=== PATIENT | female | born 1930 | race Caucasian/White ===

== ENCOUNTER 2019-06-04 00:40 | Inpatient (IN) | payer OTHER ==
--- NOTE | 2019-06-04 01:57 | PDOC ---
Attending Attestation - Resident Resident Name: Geetha Panchal - ED Attending Attestation I have performed the following: I have examined & evaluated the patient, The case was reviewed & discussed with the resident, I agree w/resident's findings & plan - HPI HPI: 06/04/19 02:25 Pt comes with hematuria; from rehab NH. - Physicial Exam PE: 06/04/19 02:26 Agree with resident exam. - Medical Decision Making 06/04/19 02:26 Pt likely has a UTI and we will check UA and rx with abx. 06/04/19 03:40 Pt has GI bleed; stool occult positive with anemia 7.4 Hb; she will be admitted for colonoscopy. GI consult placed in orders
--- NOTE | 2019-06-04 02:49 | PDOC ---
History of Present Illness - General Chief Complaint: Hematuria Stated Complaint: PAIN Time Seen by Provider: 06/04/19 01:16 - History of Present Illness Initial Comments: 06/04/19 03:53 89 y/o F hx of recent AAA repair at [facility], [place], HTN, HLD, GERD, hemorrohids, macular degeneration presents from [facility] for evaluation f hematuria and bloody stool . Hx obtained from diabetes manager at bedside. She has had hematuria for the last 3 days and increasing weakness, HEr AAA surgery at [facility], [place] was 4 weeks ago. She has had increasing weakness. Facility was contacted for more information, however unable to get anyone on the phone after a few tries. Pt is alert and oriented to person and place, she denies any fevers, chills, abdominal pain, nausea or vomiting. Past History - Past Medical History Allergies/Adverse Reactions: Allergies Allergy/AdvReac Type Severity Reaction Status Date / Time No Known Allergies Allergy Verified 06/04/19 00:53 Home Medications: Ambulatory Orders Acetaminophen [Tylenol -] 1,000 mg PO BID 06/04/19 Aspirin 81 mg PO DAILY 06/04/19 Calcium Carbonate/Vitamin D3 [Calcium 500 mg Chewable Tablet] 1 each PO DAILY Cholecalciferol (Vitamin D3) [Vitamin D3 -] 1,000 unit PO DAILY 06/04/19 Cholecalciferol (Vitamin D3) [Vitamin D3] 1,000 unit PO DAILY 06/04/19 Docusate Sodium [Colace] 200 mg PO BID 06/04/19 Ferrous Sulfate 325 mg PO DAILY 06/04/19 Irbesartan [Avapro] 150 mg PO HS 06/04/19 Mag Hydrox/Aluminum Hyd/Simeth [Donna-Lanta Liquid] 15 ml PO BID 06/04/19 Metoprolol Succinate 50 mg PO DAILY 06/04/19 Omeprazole Magnesium [Prilosec Otc] 20 mg PO DAILY 06/04/19 Polyethylene Glycol [Polyox Wsr-301] 1 gm MC DAILY 06/04/19 Potassium Chloride 2,500 gm MC TID 06/04/19 Psyllium Seed [Hydrocil Instant] 1 each PO DAILY 06/04/19 Vit A/Vit C/Vit E/Zinc/Copper [Preservision Areds Softgel] 1 cap PO BID levoFLOXacin [Levaquin -] 500 mg PO DAILY #7 tablet 06/04/19 COPD: No GI Disorders: Yes (hemorhoids, reflux) HTN: Yes Hypercholesterolemia: Yes - Psycho Social/Smoking Cessation Hx Smoking History: Never smoked Review of Systems - Review of Systems Constitutional: No: Chills, Fever HEENTM: No: Eye Pain Respiratory: No: Cough, Shortness of Breath Cardiac (ROS): No: Chest Pain, Lightheadedness ABD/GI: No: Abdominal Distended : No: Burning Musculoskeletal: Yes: Back Pain Integumentary: Yes: Bruising Neurological: No: Headache, Numbness *Physical Exam - Vital Signs Last Vital Signs Temp Pulse Resp BP Pulse Ox 98.0 F 100 H 18 117/67 100 06/04/19 00:54 06/04/19 00:54 06/04/19 00:54 06/04/19 00:54 06/04/19 00:54 - Physical Exam Comments: 06/04/19 04:01 GENERAL: Awake, AO x 2. in no acute distress HEAD: No signs of trauma, normocephalic, atraumatic EYES: PERRLA, EOMI, sclera anicteric, conjunctiva clear ENT: Auricles normal inspection, hearing grossly normal, nares patent, oropharynx clear without exudates. Moist mucosa NECK: Normal ROM, supple, no lymphadenopathy, JVD, or masses LUNGS: No distress, speaks full sentences, crackles in lower lung bases HEART: Regular rate and rhythm, normal S1 and S2, no murmurs, rubs or gallops, peripheral pulses normal and equal bilaterally. ABDOMEN: Soft. incision with wing from surgery. no swelling or erythema. suprapubic tenderness on palpation EXTREMITIES : Normal inspection, Normal range of motion, no edema. No clubbing or cyanosis NEUROLOGICAL: Alert and oriented x2. normal response. SKIN: Warm, Dry, normal turgor, no rashes or lesions noted ED Treatment Course - LABORATORY CBC & Chemistry Diagram: 06/06/19 17:45 06/06/19 07:00 Medical Decision Making - Medical Decision Making 06/04/19 04:03 89 y/o F hx of recent AAA repair at [facility], [place], HTN, HLD, GERD, hemorrohids, macular degeneration presents from [facility] for evaluation f hematuria and bloody stool cbc,cmp, ua, urine culture, stool occult UA: remarkable for blood, nitrites and leukocyte esterase. stool occult positive. 06/04/19 04:53 06/04/19 05:12 Pt discussed with night admitting team. Admission will be going to the day attending Spiral CT recommended. *DC/Admit/Observation/Transfer Diagnosis at time of Disposition: UTI (urinary tract infection) Qualifiers: Urinary tract infection type: site unspecified Hematuria presence: with hematuria Qualified Code(s): N39.0 - Urinary tract infection, site not specified - Discharge Dispostion Condition at time of disposition: Stable - Prescriptions - Referrals - Patient Instructions - Post Discharge Activity Discharge - Discharge Information Problems reviewed: Yes Clinical Impression/Diagnosis: UTI (urinary tract infection) Qualifiers: Urinary tract infection type: site unspecified Hematuria presence: with hematuria Qualified Code(s): N39.0 - Urinary tract infection, site not specified Condition: Stable - Admission Yes - Additional Discharge Information
[2019-06-04 03:14] LABS: BASO % 0.3 % (0-2.0); EOS % 1.8 % (0-4.5); HEMATOCRIT 22.9 % (32.4-45.2); HEMOGLOBIN 7.4 GM/dL (10.7-15.3); LYMPH % 8.7 % (8-40); MCH 30.2 pg (25.7-33.7); MCHC 32.3 g/dl (32.0-36.0); MEAN CELL VOLUME 93.4 fl (80-96); MEAN PLT VOLUME 7.9 fl (7.5-11.1); MONO % 5.8 % (3.8-10.2); NEUT % 83.4 % (42.8-82.8); PLATELET COUNT 262 K/MM3 (134-434); RBC 2.46 M/mm3 (3.60-5.2); RDW 16.6 % (11.6-15.6); WHITE BLOOD COUNT 9.6 K/mm3 (4.0-10.0)
[2019-06-04 03:19] LABS: EPI CELLS 23.1 /HPF (0-5/HPF); HYALINE CASTS 41 /lpf (0-8); PH,URINE 6.5 (5.0-8.0); URINE APPEARANCE TURBID; URINE BILIRUBIN 3+ (NEGATIVE); URINE COLOR RED; URINE GLUCOSE (UA) NEGATIVE (NEGATIVE); URINE KETONE NEGATIVE (NEGATIVE); URINE LEUK ESTERASE 3+ (NEGATIVE); URINE NITRITE POSITIVE (NEGATIVE); URINE PROTEIN 3+ (NEGATIVE); URINE RBC 58 /hpf (0-4); URINE UROBILINOGEN 0.2 mg/dL (0.2-1.0); URINE WBC 2 /hpf (0-5)
[2019-06-04 03:40] LABS: ALBUMIN 1.9 g/dl (3.4-5.0); BILIRUBIN,TOTAL 0.6 mg/dL (0.2-1); CALCIUM 7.6 mg/dL (8.5-10.1); CREATININE 2.1 mg/dL (0.55-1.3); POTASSIUM 4.7 mmol/L (3.5-5.1); TOT PROT 5.3 g/dl (6.4-8.2)
[2019-06-04 04:48] LABS: URINE BACTERIA 4 /hpf (NEGATIVE)
[2019-06-04] MEDS ORDERED: ACETAMINOPHEN 325 MG TABLET (FP) PO PRN (07:54)
[2019-06-04] MEDS ORDERED: SODIUM CHLORIDE 1,000 ML IV SCH (08:00)
--- NOTE | 2019-06-04 08:21 | HP ---
CHIEF COMPLAINT: hematuria PCP: Dr. Salinas HISTORY OF PRESENT ILLNESS: Patient is a 89 y/o female from [facility] with a history of AAA, HTN, HLD, who is sent in from [facility] for hematuria. Patient states that she currently has burning on urination. She does not know if she has increased frequency as she is incontinent. Patient reports she has had multiple UTI's in the past. Patient reports she also has a cough with white phlem. Patient reports she also has blood after she has a bowel movement and this is typical for her and he history of hemorrhoids. Denies nausea, vomiting, and chills. Patient does not know any of her doctors. Patient is A & O x2. No other acute complaints. ER course was notable for: (1) Levofloxacin (2) (3) Recent Travel: denies PAST MEDICAL HISTORY: AAA, HTN, HLD, GERD PAST SURGICAL HISTORY: descending thoracic AAA 4 weeks ago Social History: Smoking: denies Alcohol: denies Drugs: denies Allergies No Known Allergies Allergy (Verified 06/04/19 00:53) HOME MEDICATIONS: Home Medications Medication Instructions Recorded Acetaminophen [Tylenol -] 1,000 mg PO BID 06/04/19 Aspirin 81 mg PO DAILY 06/04/19 Calcium Carbonate/Vitamin D3 1 each PO DAILY 06/04/19 [Calcium 500 mg Chewable Tablet] Cholecalciferol (Vitamin D3) 1,000 unit PO DAILY 06/04/19 [Vitamin D3 -] Cholecalciferol (Vitamin D3) 1,000 unit PO DAILY 06/04/19 [Vitamin D3] Docusate Sodium [Colace] 200 mg PO BID 06/04/19 Ferrous Sulfate 325 mg PO DAILY 06/04/19 Irbesartan [Avapro] 150 mg PO HS 06/04/19 Mag Hydrox/Aluminum Hyd/Simeth 15 ml PO BID 06/04/19 [Donna-Lanta Liquid] Metoprolol Succinate 50 mg PO DAILY 06/04/19 Omeprazole Magnesium [Prilosec Otc] 20 mg PO DAILY 06/04/19 Polyethylene Glycol [Polyox 1 gm MC DAILY 06/04/19 Wsr-301] Potassium Chloride 2,500 gm MC TID 06/04/19 Psyllium Seed [Hydrocil Instant] 1 each PO DAILY 06/04/19 Vit A/Vit C/Vit E/Zinc/Copper 1 cap PO BID 06/04/19 [Preservision Areds Softgel] levoFLOXacin [Levaquin -] 500 mg PO DAILY #7 tablet 06/04/19 REVIEW OF SYSTEMS CONSTITUTIONAL: fever, chills Absent: diaphoresis, generalized weakness, malaise, loss of appetite, weight change HEENT: Absent: rhinorrhea, nasal congestion, throat pain, throat swelling, difficulty swallowing, mouth swelling, ear pain, eye pain, visual changes CARDIOVASCULAR: Absent: chest pain, syncope, palpitations, irregular heart rate, lightheadedness , peripheral edema RESPIRATORY: cough, phlem Absent: shortness of breath, dyspnea with exertion, orthopnea, wheezing, stridor, hemoptysis GASTROINTESTINAL: Absent: abdominal pain, abdominal distension, nausea, vomiting, diarrhea, constipation, melena, hematochezia GENITOURINARY: dysuria, hematuria Absent: frequency, urgency, hesitancy, flank pain, genital pain MUSCULOSKELETAL: Absent: myalgia, arthralgia, joint swelling, back pain, neck pain SKIN: Absent: rash, itching, pallor HEMATOLOGIC/IMMUNOLOGIC: Absent: easy bleeding, easy bruising, lymphadenopathy, frequent infections ENDOCRINE: Absent: unexplained weight gain, unexplained weight loss, heat intolerance, cold intolerance NEUROLOGIC: Absent: headache, focal weakness or paresthesias, dizziness, unsteady gait, seizure, mental status changes, bladder or bowel incontinence PSYCHIATRIC: Absent: anxiety, depression, suicidal or homicidal ideation, hallucinations. PHYSICAL EXAMINATION Vital Signs - 24 hr 06/04/19 06/04/19 00:54 05:16 Temperature 98.0 F Pulse Rate 100 H Respiratory 18 Rate Blood Pressure 117/67 O2 Sat by Pulse 100 98 Oximetry (%) GENERAL: Awake, alert, A&O x2 HEAD: Normal with no signs of trauma. EYES: Pupils equal, round and reactive to light, extraocular movements intact, EARS, NOSE, THROAT: no erythema of pharynx, Moist mucous membranes. LUNGS: Breath sounds equal, clear to auscultation bilaterally. No wheezes, and no crackles. No accessory muscle use. HEART: tachycardic, normal S1 and S2 without murmur, rub or gallop. ABDOMEN: Soft, nontender, not distended,large midline scar with wing : unable to examine hemorrhoids, patient deferred to have examine after attempts MUSCULOSKELETAL: Normal range of motion at all joints. 5/5 LE strength, intact sensations LOWER EXTREMITIES: 2+ pulses, warm, well-perfused. No calf tenderness. No peripheral edema. SKIN: Warm, dry, normal turgor, no sacral ulcer or heel ulcers noted CBC,CMP WBC 9.6 K/mm3 (4.0-10.0) 06/04/19 02:36 RBC 2.46 M/mm3 (3.60-5.2) L 06/04/19 02:36 Hgb 7.4 GM/dL (10.7-15.3) L 06/04/19 02:36 Hct 22.9 % (32.4-45.2) L 06/04/19 02:36 MCV 93.4 fl (80-96) 06/04/19 02:36 MCH 30.2 pg (25.7-33.7) 06/04/19 02:36 MCHC 32.3 g/dl (32.0-36.0) 06/04/19 02:36 RDW 16.6 % (11.6-15.6) H 06/04/19 02:36 Plt Count 262 K/MM3 (134-434) 06/04/19 02:36 MPV 7.9 fl (7.5-11.1) 06/04/19 02:36 Absolute Neuts (auto) 8.0 K/mm3 (1.5-8.0) 06/04/19 02:36 Neutrophils % 83.4 % (42.8-82.8) H 06/04/19 02:36 Lymphocytes % 8.7 % (8-40) 06/04/19 02:36 Monocytes % 5.8 % (3.8-10.2) 06/04/19 02:36 Eosinophils % 1.8 % (0-4.5) 06/04/19 02:36 Basophils % 0.3 % (0-2.0) 06/04/19 02:36 Nucleated RBC % 0 % (0-0) 06/04/19 02:36 Sodium 136 mmol/L (136-145) 06/04/19 02:36 Potassium 4.7 mmol/L (3.5-5.1) 06/04/19 02:36 Chloride 102 mmol/L (98-107) 06/04/19 02:36 Carbon Dioxide 26 mmol/L (21-32) 06/04/19 02:36 Anion Gap 8 MMOL/L (8-16) 06/04/19 02:36 BUN 47.0 mg/dL (7-18) H 06/04/19 02:36 Creatinine 2.1 mg/dL (0.55-1.3) H 06/04/19 02:36 Est GFR (CKD-EPI)AfAm 23.59 06/04/19 02:36 Est GFR (CKD-EPI)NonAf 20.35 06/04/19 02:36 Random Glucose 92 mg/dL (74-106) 06/04/19 02:36 Calcium 7.6 mg/dL (8.5-10.1) L 06/04/19 02:36 Total Bilirubin 0.6 mg/dL (0.2-1) 06/04/19 02:36 AST 29 U/L (15-37) 06/04/19 02:36 ALT 22 U/L (13-61) 06/04/19 02:36 Alkaline Phosphatase 119 U/L (45-117) H 06/04/19 02:36 Total Protein 5.3 g/dl (6.4-8.2) L 06/04/19 02:36 Albumin 1.9 g/dl (3.4-5.0) L 06/04/19 02:36 ASSESSMENT/PLAN: Patient is a 89 y/o female from [facility] with a history of AAA, HTN, HLD, who is admitted for UTI. #UTI - positive UA - given Levofloxacin dose once - continue 1 gm Ceftriaxone tomorrow - QTC 484 - f/u urine culture - afebrile, tachycardic - ABD/Pelvis CT: thickened bladder wall, left renal cyst with nonobstructing stone #Anemia - likely 2/2 to combination hematuria and hematochezia 2/2 to UTI and hemorrhoids - last HGB on 06/01 8.1 - will f/u repeat Hgb @ 1 pm > 7.7 will continue to monitor - will f/u with Dr. Doshi - stool occult for blood positive - transfusion threshold below 7 - continue iron supplementation #AAA - repair 4 weeks ago, sent off for records for [facility] - Abd/Pelvis CT: 7.5 x 3.5 x 2.6 left retroperitoneal hypodense mass or fluid collection - will f/u clincally and consider consulting surgery to examine AAA and mass - continue aspirin #STANISLAW on CKD - likely 2/2 to hypovolemia, with concurrent UTI - Cr worse, recent 06/01 labs with a 1.8 - 20 meq potassium chloride M, W, F #HTN - continue metoprolol 50 mg extended release - irbesartan 150 mg #DVT ppx - SCD's - hold heparin in setting of hematuria FEN - chopped low sodium diet - NS @ 42 - patient on continuous 2-3 L NC O2 as per detention Dispo: monitor on med surg, f/u records from [facility] Visit type - Emergency Visit Emergency Visit: Yes ED Registration Date: 06/04/19 Care time: The patient presented to the Emergency Department on the above date and was hospitalized for further evaluation of their emergent condition. - New Patient This patient is new to me today: Yes Date on this admission: 06/05/19 - Critical Care Critical Care patient: No ATTENDING PHYSICIAN STATEMENT I saw and evaluated the patient. I reviewed the resident's note and discussed the case with the resident. I agree with the resident's findings and plan as documented. SUBJECTIVE: OBJECTIVE: ASSESSMENT AND PLAN:
--- NOTE | 2019-06-04 08:48 | PN ---
Progress Note (short form) - Note Progress Note: Patient to be transferred to service.
[2019-06-04] MEDS ORDERED: HEPARIN NA (PORCINE) 5,000 UNITS/ML 1ML VIAL SQ SCH (09:00)
[2019-06-04] MEDS ORDERED: ASPIRIN 81 MG CHEWABLE TABLETS PO SCH (10:00)
[2019-06-04] MEDS ORDERED: PSYLLIUM SEED PO SCH (10:00)
[2019-06-04] MEDS ORDERED: CEFTRIAXONE 1 GM in DEXTROSE 5%-WATER - 50 ML IVPB SCH (10:00)
--- NOTE | 2019-06-04 10:37 | PN ---
Teaching Attending Note Name of Resident: Marium Acuña ATTENDING PHYSICIAN STATEMENT I saw and evaluated the patient. I reviewed the resident's note and discussed the case with the resident. I agree with the resident's findings and plan as documented. SUBJECTIVE: This is an 89 year old woman with a history of AAA with recent open repair, HTN, hyperlipidemia, GERD, hemorrhoids, UTIs who comes to the ED from [facility] for evaluation of hematuria. The patient reports that she has burning when she urinates and that she has been having bloody bowel movements. It is noted that she has not been eating or drinking well. OBJECTIVE: Vital Signs Period Temp Pulse Resp BP Sys/Up Pulse Ox Last 24 Hr 98.0 F 100 18 117/67 98-100 HEART: S1S2, tachycardic LUNGS: Clear ABDOMEN: Soft, non-tender, non-distended, normal BS, healing surgical incision with wing EXTREMITIES: No edema RECTAL: Refused Laboratory Tests 06/04/19 06/04/19 06/04/19 02:36 02:36 02:46 WBC 9.6 RBC 2.46 L Hgb 7.4 L Hct 22.9 L MCV 93.4 MCH 30.2 MCHC 32.3 RDW 16.6 H Plt Count 262 MPV 7.9 Absolute Neuts (auto) 8.0 Neutrophils % 83.4 H Lymphocytes % 8.7 Monocytes % 5.8 Eosinophils % 1.8 Basophils % 0.3 Nucleated RBC % 0 Sodium 136 Potassium 4.7 Chloride 102 Carbon Dioxide 26 Anion Gap 8 BUN 47.0 H Creatinine 2.1 H Est GFR (CKD-EPI)AfAm 23.59 Est GFR (CKD-EPI)NonAf 20.35 Random Glucose 92 Calcium 7.6 L Total Bilirubin 0.6 AST 29 ALT 22 Alkaline Phosphatase 119 H Total Protein 5.3 L Albumin 1.9 L Urine Color Red Urine Appearance Turbid Urine pH 6.5 Ur Specific [place] 1.023 Urine Protein 3+ H Urine Glucose (UA) Negative Urine Ketones Negative Urine Blood 3+ H Urine Nitrite Positive H Urine Bilirubin 3+ H Urine Urobilinogen 0.2 Ur Leukocyte Esterase 3+ H Urine WBC (Auto) 2 Urine RBC (Auto) 58 Urine Casts (Auto) 41 U Pathogenic Cast Auto None U Epithel Cells (Auto) 23.1 Urine Bacteria (Auto) 4 Stool Occult Blood Blood Type Antibody Screen 06/04/19 06/04/19 04:07 09:20 WBC RBC Hgb Hct MCV MCH MCHC RDW Plt Count MPV Absolute Neuts (auto) Neutrophils % Lymphocytes % Monocytes % Eosinophils % Basophils % Nucleated RBC % Sodium Potassium Chloride Carbon Dioxide Anion Gap BUN Creatinine Est GFR (CKD-EPI)AfAm Est GFR (CKD-EPI)NonAf Random Glucose Calcium Total Bilirubin AST ALT Alkaline Phosphatase Total Protein Albumin Urine Color Urine Appearance Urine pH Ur Specific [place] Urine Protein Urine Glucose (UA) Urine Ketones Urine Blood Urine Nitrite Urine Bilirubin Urine Urobilinogen Ur Leukocyte Esterase Urine WBC (Auto) Urine RBC (Auto) Urine Casts (Auto) U Pathogenic Cast Auto U Epithel Cells (Auto) Urine Bacteria (Auto) Stool Occult Blood Positive Blood Type O POSITIVE Antibody Screen Negative Home Medications Medication Instructions Recorded Acetaminophen [Tylenol -] 1,000 mg PO BID 06/04/19 Aspirin 81 mg PO DAILY 06/04/19 Calcium Carbonate/Vitamin D3 1 each PO DAILY 06/04/19 [Calcium 500 mg Chewable Tablet] Cholecalciferol (Vitamin D3) 1,000 unit PO DAILY 06/04/19 [Vitamin D3 -] Cholecalciferol (Vitamin D3) 1,000 unit PO DAILY 06/04/19 [Vitamin D3] Docusate Sodium [Colace] 200 mg PO BID 06/04/19 Ferrous Sulfate 325 mg PO DAILY 06/04/19 Irbesartan [Avapro] 150 mg PO HS 06/04/19 Mag Hydrox/Aluminum Hyd/Simeth 15 ml PO BID 06/04/19 [Donna-Lanta Liquid] Metoprolol Succinate 50 mg PO DAILY 06/04/19 Omeprazole Magnesium [Prilosec Otc] 20 mg PO DAILY 06/04/19 Polyethylene Glycol [Polyox 1 gm MC DAILY 06/04/19 Wsr-301] Potassium Chloride 2,500 gm MC TID 06/04/19 Psyllium Seed [Hydrocil Instant] 1 each PO DAILY 06/04/19 Vit A/Vit C/Vit E/Zinc/Copper 1 cap PO BID 06/04/19 [Preservision Areds Softgel] levoFLOXacin [Levaquin -] 500 mg PO DAILY #7 tablet 06/04/19 ASSESSMENT AND PLAN: This is an 89 year old woman with a history of AAA with recent open repair, HTN , hyperlipidemia, GERD, hemorrhoids, UTIs who was sent to the ED from [facility] for evaluation of hematuria. 1. UTI - Levaquin given in ED - Will change to ceftriaxone - Follow up urine culture 2. Anemia, likely secondary to hematuria and acute GI blood loss on chronic anemia - Likely hemorrhoidal - Baseline hemoglobin unknown - Will obtain records from [facility] - Hold aspirin - Continue ferrous sulfate - Monitor hemoglobin and transfuse as necessary - Will need to do rectal exam once patient able to turn onto her side 3. Acute kidney injury vs stage 4 CKD - Baseline creatinine unknown - Will obtain records from [facility] - Gentle IV hydration - Monitor BUN, creatinine 4. AAA, recent open repair - CT A/P noted - Will obtain records from [facility] - Vascular evaluation 5. HTN - Hold Avapro secondary to possible STANISLAW - Continue Toprol XL 6. Hyperlipidemia 7. GERD 8. Hypoalbuminemia - Likely secondary to poor oral intake - Dietary evaluation
[2019-06-04] MEDS: FERROUS SO4 325 MG TABLET (FP) PO SCH (12:00)
[2019-06-04] MEDS: PANTOPRAZOLE 20 MG TABLET (FP) PO SCH (12:00)
[2019-06-04] MEDS: POTASSIUM CHLORIDE TABS 20 MEQ TABLET.ER (FP) PO SCH (12:00)
[2019-06-04] MEDS: POLYETHYLENE GLYCOL 3350 119 GM BTL PO SCH (12:00)
[2019-06-04] MEDS: CHOLECALCIFEROL (VIT D3) 1,000 UNIT (25 MCG) TABLET PO SCH (12:00)
[2019-06-04] MEDS: CALCIUM 500MG/VIT-D 200 UNITS COMBO TABLET (FP) PO SCH (12:00)
[2019-06-04] MEDS: DOCUSATE SODIUM 100 MG CAPSULE (FP) PO SCH ×2 (13:00→22:28)
[2019-06-04] MEDS: MAG HYDROX/AL HYDROX/SIMETH 30 ML UNIT-DOSE CUP PO SCH ×2 (13:00→22:28)
[2019-06-04] MEDS ORDERED: PANTOPRAZOLE 40 MG TABLET (FP) ONE (13:08)
[2019-06-04] MEDS ORDERED: ASPIRIN 81 MG CHEWABLE TABLETS ONE (13:08)
[2019-06-04] MEDS ORDERED: POTASSIUM CHLORIDE TABS 20 MEQ TABLET.ER (FP) PO ONE (13:08)
[2019-06-04] MEDS ORDERED: DOCUSATE SODIUM 100 MG CAPSULE (FP) PO ONE ×2 (13:09→22:10)
[2019-06-04] MEDS ORDERED: FERROUS SO4 325 MG TABLET (FP) ONE (13:09)
[2019-06-04] MEDS ORDERED: MAG HYDROX/AL HYDROX/SIMETH 30 ML UNIT-DOSE CUP ONE ×2 (13:12→22:11)
[2019-06-04] MEDS ORDERED: CEFTRIAXONE 1 GM/50 ML BAG ONE (13:14)
[2019-06-04 13:16] LABS: HEMOGLOBIN 7.7 GM/dL (10.7-15.3); MCH 30.6 pg (25.7-33.7); MCHC 33.4 g/dl (32.0-36.0); MEAN CELL VOLUME 91.8 fl (80-96); MEAN PLT VOLUME 7.4 fl (7.5-11.1); PLATELET COUNT 248 K/MM3 (134-434); RBC 2.51 M/mm3 (3.60-5.2); RDW 16.5 % (11.6-15.6)
[2019-06-04] MEDS: CEFTRIAXONE 1 GM in DEXTROSE 5%-WATER - 50 ML IVPB SCH (13:51)
[2019-06-04] MEDS ORDERED: SODIUM CHLORIDE 1,000 ML IV STA (15:37)
--- NOTE | 2019-06-04 18:23 | EKG ---
Test Reason : Blood Pressure : / mmHG Vent. Rate : 103 BPM Atrial Rate : 103 BPM P-R Int : 132 ms QRS Dur : 116 ms QT Int : 370 ms P-R-T Axes : 040 056 012 degrees QTc Int : 484 ms SINUS TACHYCARDIA INCOMPLETE RIGHT BUNDLE BRANCH BLOCK BORDERLINE ECG NO PREVIOUS ECGS AVAILABLE Confirmed by JD MORAES MD ([id number]) on 06/04/2019 6:22:54 PM Referred By: Confirmed By:JD MORAES MD
[2019-06-04] MEDS ORDERED: LOSARTAN POTASSIUM 50 MG TABLET (FP) PO SCH (22:00)
[2019-06-04] MEDS ORDERED: LOSARTAN POTASSIUM 50 MG TABLET (FP) ONE (22:11)
[2019-06-04] MEDS: SODIUM CHLORIDE 1,000 ML IV SCH (22:27)
[2019-06-04 23:11] LABS: HEMATOCRIT 21.5 % (32.4-45.2); HEMOGLOBIN 7.1 GM/dL (10.7-15.3); MCH 30.5 pg (25.7-33.7); MCHC 33.1 g/dl (32.0-36.0); MEAN CELL VOLUME 92.2 fl (80-96); MEAN PLT VOLUME 6.8 fl (7.5-11.1); PLATELET COUNT 241 K/MM3 (134-434); RBC 2.33 M/mm3 (3.60-5.2); RDW 15.8 % (11.6-15.6)
[2019-06-04 23:35] LABS: ALBUMIN 1.8 g/dl (3.4-5.0); BILIRUBIN,TOTAL 0.6 mg/dL (0.2-1); BLOOD UREA NITROGEN 43.1 mg/dL (7-18); CALCIUM 7.5 mg/dL (8.5-10.1); CREATININE 2.1 mg/dL (0.55-1.3); POTASSIUM 4.3 mmol/L (3.5-5.1)
[2019-06-05 04:30] VITALS: BMI 27.1
[2019-06-05 07:47] LABS: HEMATOCRIT 21.4 % (32.4-45.2); HEMOGLOBIN 7.2 GM/dL (10.7-15.3); MCHC 33.5 g/dl (32.0-36.0); MEAN CELL VOLUME 92.6 fl (80-96); MEAN PLT VOLUME 7.3 fl (7.5-11.1); PLATELET COUNT 232 K/MM3 (134-434); RBC 2.32 M/mm3 (3.60-5.2); RDW 16.4 % (11.6-15.6)
[2019-06-05 08:18] LABS: ALBUMIN 1.7 g/dl (3.4-5.0); BILIRUBIN,TOTAL 0.7 mg/dL (0.2-1); BLOOD UREA NITROGEN 40.7 mg/dL (7-18); CALCIUM 7.3 mg/dL (8.5-10.1); CREATININE 1.9 mg/dL (0.55-1.3); POTASSIUM 4.5 mmol/L (3.5-5.1); TOT PROT 4.9 g/dl (6.4-8.2)
[2019-06-05] MEDS ORDERED: DEXTROSE 5%-WATER - 50 ML IVPB ONE (09:03)
[2019-06-05] MEDS ORDERED: cefTRIAXone SODIUM 1 GM VIAL ONE (09:03)
[2019-06-05] MEDS: CEFTRIAXONE 1 GM in DEXTROSE 5%-WATER - 50 ML IVPB SCH (09:12)
[2019-06-05] MEDS: FERROUS SO4 325 MG TABLET (FP) PO SCH (09:17)
[2019-06-05] MEDS: CALCIUM 500MG/VIT-D 200 UNITS COMBO TABLET (FP) PO SCH (09:17)
[2019-06-05] MEDS: CHOLECALCIFEROL (VIT D3) 1,000 UNIT (25 MCG) TABLET PO SCH (09:17)
[2019-06-05] MEDS: DOCUSATE SODIUM 100 MG CAPSULE (FP) PO SCH ×2 (09:17→21:25)
[2019-06-05] MEDS: MAG HYDROX/AL HYDROX/SIMETH 30 ML UNIT-DOSE CUP PO SCH ×2 (09:17→21:24)
[2019-06-05] MEDS: PANTOPRAZOLE 20 MG TABLET (FP) PO SCH (09:17)
[2019-06-05] MEDS: POLYETHYLENE GLYCOL 3350 119 GM BTL PO SCH (09:18)
[2019-06-05] MEDS ORDERED: CEFTRIAXONE 1 GM in DEXTROSE 5%-WATER - 50 ML IVPB SCH (10:00)
--- NOTE | 2019-06-05 10:41 | CONSULT ---
<Perez Nazario - Last Filed: 06/05/19 13:50> - Consultation REQUESTING PROVIDER: CONSULT REQUEST: We have been asked to surgically evaluate this patient for AAA PCP:Tony Grider MD HISTORY OF PRESENT ILLNESS: 89 y/o F from [place] w/ PMHx AAA well known to Vascular at [facility] (Dr Irby), HTN, HLD, sent from [place] for hematuria. Dr Vila consulted for CT scan revealing aortic aneurysms. Case d/w Dr Irby at [facility]. 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 Planned for f/u today at [facility] now presents to hematuria. Has some abdominal pain at incision site, otherwise feels well. PMHx: as above PSHx: as above Home Medications Medication Instructions Recorded Acetaminophen [Tylenol -] 1,000 mg PO BID 06/04/19 Aspirin 81 mg PO DAILY 06/04/19 Calcium Carbonate/Vitamin D3 1 each PO DAILY 06/04/19 [Calcium 500 mg Chewable Tablet] Cholecalciferol (Vitamin D3) 1,000 unit PO DAILY 06/04/19 [Vitamin D3 -] Cholecalciferol (Vitamin D3) 1,000 unit PO DAILY 06/04/19 [Vitamin D3] Docusate Sodium [Colace] 200 mg PO BID 06/04/19 Ferrous Sulfate 325 mg PO DAILY 06/04/19 Irbesartan [Avapro] 150 mg PO HS 06/04/19 Mag Hydrox/Aluminum Hyd/Simeth 15 ml PO BID 06/04/19 [Donna-Lanta Liquid] Metoprolol Succinate 50 mg PO DAILY 06/04/19 Omeprazole Magnesium [Prilosec Otc] 20 mg PO DAILY 06/04/19 Polyethylene Glycol [Polyox 1 gm MC DAILY 06/04/19 Wsr-301] Potassium Chloride 2,500 gm MC TID 06/04/19 Psyllium Seed [Hydrocil Instant] 1 each PO DAILY 06/04/19 Vit A/Vit C/Vit E/Zinc/Copper 1 cap PO BID 06/04/19 [Preservision Areds Softgel] levoFLOXacin [Levaquin -] 500 mg PO DAILY #7 tablet 06/04/19 Allergies Allergy/AdvReac Type Severity Reaction Status Date / Time No Known Allergies Allergy Verified 06/04/19 00:53 REVIEW OF SYSTEMS: CONSTITUTIONAL: Absent: fever, chills CARDIOVASCULAR: Absent: chest pain, syncope RESPIRATORY: Absent: cough, shortness of breath GASTROINTESTINAL: Absent: abdominal pain, abdominal distension, nausea, vomiting, diarrhea PHYSICAL EXAM: GENERAL: Awake, alert, oriented only to person, in no acute distress. HEAD: Normal with no signs of trauma. LUNGS: Unlabored on RA. No accessory muscle use. ABDOMEN: Soft, midline incision healing well, wing intact, +ttp at incision site. No drainage, no erythema.Normoactive bowel sounds. LOWER EXTREMITIES: 2+ b/l dp, pt not appreciated, b/l feet warm, well-perfused. No calf tenderness. No peripheral edema. Vital Signs Temperature 98.8 F 06/05/19 03:58 Pulse Rate 91 H 06/05/19 03:58 Respiratory Rate 18 06/05/19 03:58 Blood Pressure 113/57 L 06/05/19 03:58 O2 Sat by Pulse Oximetry (%) 94 L 06/05/19 04:41 Lab Results WBC 9.0 K/mm3 (4.0-10.0) 06/05/19 07:00 RBC 2.32 M/mm3 (3.60-5.2) L 06/05/19 07:00 Hgb 7.2 GM/dL (10.7-15.3) L 06/05/19 07:00 Hct 21.4 % (32.4-45.2) L 06/05/19 07:00 MCV 92.6 fl (80-96) 06/05/19 07:00 MCHC 33.5 g/dl (32.0-36.0) 06/05/19 07:00 RDW 16.4 % (11.6-15.6) H 06/05/19 07:00 Plt Count 232 K/MM3 (134-434) 06/05/19 07:00 Sodium 137 mmol/L (136-145) 06/05/19 07:00 Potassium 4.5 mmol/L (3.5-5.1) 06/05/19 07:00 Chloride 106 mmol/L (98-107) 06/05/19 07:00 Carbon Dioxide 23 mmol/L (21-32) 06/05/19 07:00 Anion Gap 8 MMOL/L (8-16) 06/05/19 07:00 BUN 40.7 mg/dL (7-18) H 06/05/19 07:00 Creatinine 1.9 mg/dL (0.55-1.3) H 06/05/19 07:00 Random Glucose 83 mg/dL (74-106) 06/05/19 07:00 Calcium 7.3 mg/dL (8.5-10.1) L 06/05/19 07:00 Blood Type O POSITIVE 06/04/19 13:26 Antibody Screen Negative 06/04/19 09:20 A/P: 89 y/o F from [place] w/ PMHx AAA well known to Vascular at [facility] (Dr Irby), HTN, HLD, sent from [place] for hematuria. Dr Vila consulted for CT scan revealing aortic aneurysms. Case d/w Dr Irby at [facility]. Pt is complex s/p recent explant and AAA repair (05/07) -Pt scheduled for f/u with Dr Irby today however admitted for hematuria -Pt should f/u upon discharge with Dr Irby at [facility] -No Acute vascular intervention at this time d/w attending Dr Vila <Davion Vila - Last Filed: 06/05/19 18:43> - Consultation REQUESTING PROVIDER: CONSULT REQUEST: We have been asked to surgically evaluate this patient for ( specify). PCP:Tony Grider MD HISTORY OF PRESENT ILLNESS: PMHx: PSHx: Home Medications Medication Instructions Recorded Acetaminophen [Tylenol -] 1,000 mg PO BID 06/04/19 Aspirin 81 mg PO DAILY 06/04/19 Calcium Carbonate/Vitamin D3 1 each PO DAILY 06/04/19 [Calcium 500 mg Chewable Tablet] Cholecalciferol (Vitamin D3) 1,000 unit PO DAILY 06/04/19 [Vitamin D3 -] Cholecalciferol (Vitamin D3) 1,000 unit PO DAILY 06/04/19 [Vitamin D3] Docusate Sodium [Colace] 200 mg PO BID 06/04/19 Ferrous Sulfate 325 mg PO DAILY 06/04/19 Irbesartan [Avapro] 150 mg PO HS 06/04/19 Mag Hydrox/Aluminum Hyd/Simeth 15 ml PO BID 06/04/19 [Donna-Lanta Liquid] Metoprolol Succinate 50 mg PO DAILY 06/04/19 Omeprazole Magnesium [Prilosec Otc] 20 mg PO DAILY 06/04/19 Polyethylene Glycol [Polyox 1 gm MC DAILY 06/04/19 Wsr-301] Potassium Chloride 2,500 gm MC TID 06/04/19 Psyllium Seed [Hydrocil Instant] 1 each PO DAILY 06/04/19 Vit A/Vit C/Vit E/Zinc/Copper 1 cap PO BID 06/04/19 [Preservision Areds Softgel] levoFLOXacin [Levaquin -] 500 mg PO DAILY #7 tablet 06/04/19 Allergies Allergy/AdvReac Type Severity Reaction Status Date / Time No Known Allergies Allergy Verified 06/04/19 00:53 REVIEW OF SYSTEMS: CONSTITUTIONAL: Absent: fever, chills, diaphoresis, generalized weakness, malaise, loss of appetite, weight change CARDIOVASCULAR: Absent: chest pain, syncope, palpitations, irregular heart rate, lightheadedness , peripheral edema RESPIRATORY: Absent: cough, shortness of breath, dyspnea with exertion, wheezing, stridor, hemoptysis GASTROINTESTINAL: Absent: abdominal pain, abdominal distension, nausea, vomiting, diarrhea, constipation, melena, hematochezia GENITOURINARY: Absent: dysuria, frequency, urgency, hesitancy, hematuria, flank pain, genital pain MUSCULOSKELETAL: Absent: myalgia, arthralgia, joint swelling, back pain, neck pain SKIN: Absent: rash, itching, pallor HEMATOLOGIC/IMMUNOLOGIC: Absent: easy bleeding, easy bruising, lymphadenopathy NEUROLOGIC: Absent: headache, focal weakness, paresthesias, dizziness, unsteady gait, seizure, mental status changes, bladder or bowel incontinence PSYCHIATRIC: Absent: anxiety, depression, suicidal or homicidal ideation, hallucinations. PHYSICAL EXAM: GENERAL: Awake, alert, and fully oriented, in no acute distress. HEAD: Normal with no signs of trauma. EYES: PERRL, sclera anicteric, conjunctiva clear. NECK: Normal ROM, supple without lymphadenopathy, JVD, or masses. LUNGS: Clear to auscultation bilat anteriorly. No wheezes, and no crackles. No accessory muscle use. HEART: Regular rate and rhythm. No murmurs ABDOMEN: Soft, nontender, not distended, normoactive bowel sounds, no guarding, no rebound, no masses. No organomegaly. MUSCULOSKELETAL: Normal ROM at all joints. No bony deformities or tenderness. No CVA tenderness. UPPER EXTREMITIES: 2+ pulses, warm, well-perfused. No cyanosis. Cap refill <2 seconds. No peripheral edema. LOWER EXTREMITIES: 2+ pulses, warm, well-perfused. No calf tenderness. No peripheral edema. NEUROLOGICAL: Normal speech, gait not observed. PSYCH: Cooperative. Good eye contact. Appropriate mood and affect. SKIN: Warm, dry, normal turgor, no rashes or lesions noted. Vital Signs Temperature 98.2 F 06/05/19 17:09 Pulse Rate 89 06/05/19 17:09 Respiratory Rate 20 06/05/19 17:09 Blood Pressure 128/75 06/05/19 17:09 O2 Sat by Pulse Oximetry (%) 97 06/05/19 09:00 Lab Results WBC 9.0 K/mm3 (4.0-10.0) 06/05/19 07:00 RBC 2.32 M/mm3 (3.60-5.2) L 06/05/19 07:00 Hgb 7.2 GM/dL (10.7-15.3) L 06/05/19 07:00 Hct 21.4 % (32.4-45.2) L 06/05/19 07:00 MCV 92.6 fl (80-96) 06/05/19 07:00 MCHC 33.5 g/dl (32.0-36.0) 06/05/19 07:00 RDW 16.4 % (11.6-15.6) H 06/05/19 07:00 Plt Count 232 K/MM3 (134-434) 06/05/19 07:00 Sodium 137 mmol/L (136-145) 06/05/19 07:00 Potassium 4.5 mmol/L (3.5-5.1) 06/05/19 07:00 Chloride 106 mmol/L (98-107) 06/05/19 07:00 Carbon Dioxide 23 mmol/L (21-32) 06/05/19 07:00 Anion Gap 8 MMOL/L (8-16) 06/05/19 07:00 BUN 40.7 mg/dL (7-18) H 06/05/19 07:00 Creatinine 1.9 mg/dL (0.55-1.3) H 06/05/19 07:00 Random Glucose 83 mg/dL (74-106) 06/05/19 07:00 Calcium 7.3 mg/dL (8.5-10.1) L 06/05/19 07:00 Blood Type O POSITIVE 06/04/19 13:26 Antibody Screen Negative 06/04/19 09:20 CT scan reviewed, no evidence for vascular surgical issue that would lead to hematuria. Follow-up with Vascular Surgery at [facility] needed.
[2019-06-05] MEDS: SODIUM CHLORIDE 1,000 ML IV SCH (15:34)
--- NOTE | 2019-06-05 17:54 | PN ---
Physical Exam: SUBJECTIVE: Patient seen and examined OBJECTIVE: Vital Signs Period Temp Pulse Resp BP Sys/Up Pulse Ox Last 24 Hr 97.8 F-98.8 F 74-94 18-20 108-137/55-75 94-97 GENERAL: The patient is awake, alert, and fully oriented, in no acute distress. HEAD: Normal with no signs of trauma. EYES: PERRL, extraocular movements intact, sclera anicteric, conjunctiva clear. No ptosis. ENT: Ears normal, nares patent, oropharynx clear without exudates, moist mucous membranes. NECK: Trachea midline, full range of motion, supple. LUNGS: Breath sounds equal, clear to auscultation bilaterally, no wheezes, no crackles, no accessory muscle use. HEART: Regular rate and rhythm, S1, S2 without murmur, rub or gallop. ABDOMEN: Soft, nontender, nondistended, normoactive bowel sounds, no guarding, no rebound, no hepatosplenomegaly, no masses. EXTREMITIES: 2+ pulses, warm, well-perfused, no edema. NEUROLOGICAL: Cranial nerves II through XII grossly intact. Normal speech, gait not observed. PSYCH: Normal mood, normal affect. SKIN: Warm, dry, normal turgor, no rashes or lesions noted Laboratory Results - last 24 hr 06/04/19 06/04/19 06/05/19 23:00 23:00 07:00 WBC 9.0 9.0 RBC 2.33 L 2.32 L Hgb 7.1 L 7.2 L Hct 21.5 L 21.4 L MCV 92.2 92.6 MCH 30.5 31.0 MCHC 33.1 33.5 RDW 15.8 H 16.4 H Plt Count 241 232 MPV 6.8 L 7.3 L Sodium 136 Potassium 4.3 Chloride 104 Carbon Dioxide 24 Anion Gap 8 BUN 43.1 H Creatinine 2.1 H Est GFR (CKD-EPI)AfAm 23.59 Est GFR (CKD-EPI)NonAf 20.35 Random Glucose 94 Calcium 7.5 L Total Bilirubin 0.6 AST 18 ALT 19 Alkaline Phosphatase 109 Total Protein 5.0 L Albumin 1.8 L 06/05/19 07:00 WBC RBC Hgb Hct MCV MCH MCHC RDW Plt Count MPV Sodium 137 Potassium 4.5 Chloride 106 Carbon Dioxide 23 Anion Gap 8 BUN 40.7 H Creatinine 1.9 H Est GFR (CKD-EPI)AfAm 26.62 Est GFR (CKD-EPI)NonAf 22.97 Random Glucose 83 Calcium 7.3 L Total Bilirubin 0.7 AST 17 ALT 17 Alkaline Phosphatase 100 Total Protein 4.9 L Albumin 1.7 L Active Medications Generic Name Dose Route Start Last Admin Trade Name Freq PRN Reason Stop Dose Admin Acetaminophen 650 mg 06/04/19 07:54 Tylenol - PO Q4H PRN PAIN OR FEVER Al Hydroxide/Mg Hydroxide 15 ml 06/04/19 10:00 06/05/19 09:17 Mylanta Oral Suspension - PO 15 ml BID ERA Administration Calcium Carbonate/Cholecalciferol 1 tab 06/04/19 10:00 06/05/19 09:17 Os-Albert 500+D - PO 1 tab DAILY ERA Administration Cholecalciferol 1,000 unit 06/04/19 10:00 06/05/19 09:17 Vitamin D3 - PO 1,000 unit DAILY ERA Administration Docusate Sodium 200 mg 06/04/19 10:00 06/05/19 09:17 Colace - PO 200 mg BID ERA Administration Ferrous Sulfate 325 mg 06/04/19 10:00 06/05/19 09:17 Feosol - PO 325 mg DAILY ERA Administration Ceftriaxone Sodium 1 gm/ 50 mls @ 100 mls/hr 06/04/19 14:00 06/05/19 09:12 Dextrose IVPB 100 mls/hr DAILY ERA Administration Protocol Sodium Chloride 1,000 mls @ 100 mls/hr 06/04/19 15:37 06/05/19 15:34 Normal Saline - IV 100 mls/hr ASDIR ERA Administration Metoprolol Succinate 50 mg 06/04/19 10:00 06/05/19 09:17 Toprol Xl - PO 50 mg DAILY ERA Administration Pantoprazole Sodium 20 mg 06/04/19 10:00 06/05/19 09:17 Protonix - PO 20 mg DAILY EAR Administration Polyethylene Glycol 17 gm 06/04/19 10:00 06/05/19 09:18 Miralax (For Daily Use) - PO Not Given DAILY ERA Potassium Chloride 20 meq 06/04/19 10:00 06/04/19 12:00 K-Dur - PO 20 meq MoWeFr ERA Administration ASSESSMENT/PLAN: ATTENDING PHYSICIAN STATEMENT I saw and evaluated the patient. I reviewed the resident's note and discussed the case with the resident. I agree with the resident's findings and plan as documented. SUBJECTIVE: OBJECTIVE: ASSESSMENT AND PLAN:
--- NOTE | 2019-06-05 19:44 | PN ---
Teaching Attending Note Name of Resident: Michelle Ambriz ATTENDING PHYSICIAN STATEMENT I saw and evaluated the patient. I reviewed the resident's note and discussed the case with the resident. I agree with the resident's findings and plan as documented. SUBJECTIVE: No complaints, Disoriented. OBJECTIVE: Afebrile, Hemodynamically Stable Last Vital Signs Temp Pulse Resp BP Pulse Ox 98.2 F 89 20 128/75 97 06/05/19 17:06/05/19 17:06/05/19 17:06/05/19 17:06/05/19 09:00 HEART: S1, S2, RRR LUNGS: Clear to auscultation ABDOMEN: Soft, normal BS, healing surgical incision with wing, mild suprapubic tenderness. EXTREMITIES: No edema, no calf tenderness. NEURO: AAO x 1. Moves all 4 extremities. Laboratory Results - last 24 hr 06/04/19 06/04/19 06/05/19 23:00 23:00 07:00 WBC 9.0 9.0 RBC 2.33 L 2.32 L Hgb 7.1 L 7.2 L Hct 21.5 L 21.4 L MCV 92.2 92.6 MCH 30.5 31.0 MCHC 33.1 33.5 RDW 15.8 H 16.4 H Plt Count 241 232 MPV 6.8 L 7.3 L Sodium 136 Potassium 4.3 Chloride 104 Carbon Dioxide 24 Anion Gap 8 BUN 43.1 H Creatinine 2.1 H Est GFR (CKD-EPI)AfAm 23.59 Est GFR (CKD-EPI)NonAf 20.35 Random Glucose 94 Calcium 7.5 L Total Bilirubin 0.6 AST 18 ALT 19 Alkaline Phosphatase 109 Total Protein 5.0 L Albumin 1.8 L 06/05/19 07:00 WBC RBC Hgb Hct MCV MCH MCHC RDW Plt Count MPV Sodium 137 Potassium 4.5 Chloride 106 Carbon Dioxide 23 Anion Gap 8 BUN 40.7 H Creatinine 1.9 H Est GFR (CKD-EPI)AfAm 26.62 Est GFR (CKD-EPI)NonAf 22.97 Random Glucose 83 Calcium 7.3 L Total Bilirubin 0.7 AST 17 ALT 17 Alkaline Phosphatase 100 Total Protein 4.9 L Albumin 1.7 L Current Medications Generic Name Dose Route Start Last Admin Trade Name Freq PRN Reason Stop Dose Admin Acetaminophen 650 mg 06/04/19 07:54 Tylenol - PO Q4H PRN PAIN OR FEVER Al Hydroxide/Mg Hydroxide 15 ml 06/04/19 10:00 06/05/19 09:17 Mylanta Oral Suspension - PO 15 ml BID ERA Administration Calcium Carbonate/Cholecalciferol 1 tab 06/04/19 10:00 06/05/19 09:17 Os-Albert 500+D - PO 1 tab DAILY ERA Administration Cholecalciferol 1,000 unit 06/04/19 10:00 06/05/19 09:17 Vitamin D3 - PO 1,000 unit DAILY ERA Administration Docusate Sodium 200 mg 06/04/19 10:00 06/05/19 09:17 Colace - PO 200 mg BID ERA Administration Ferrous Sulfate 325 mg 06/04/19 10:00 06/05/19 09:17 Feosol - PO 325 mg DAILY ERA Administration Ceftriaxone Sodium 1 gm/ 50 mls @ 100 mls/hr 06/04/19 14:00 06/05/19 09:12 Dextrose IVPB 100 mls/hr DAILY ERA Administration Protocol Sodium Chloride 1,000 mls @ 100 mls/hr 06/04/19 15:37 06/05/19 15:34 Normal Saline - IV 100 mls/hr ASDIR ERA Administration Metoprolol Succinate 50 mg 06/04/19 10:00 06/05/19 09:17 Toprol Xl - PO 50 mg DAILY ERA Administration Pantoprazole Sodium 20 mg 06/04/19 10:00 06/05/19 09:17 Protonix - PO 20 mg DAILY ERA Administration Polyethylene Glycol 17 gm 06/04/19 10:00 06/05/19 09:18 Miralax (For Daily Use) - PO Not Given DAILY [facility] Potassium Chloride 20 meq 06/04/19 10:00 06/04/19 12:00 K-Dur - PO 20 meq MoWeFr ERA Administration Home Medications Medication Instructions Recorded Acetaminophen [Tylenol -] 1,000 mg PO BID 06/04/19 Aspirin 81 mg PO DAILY 06/04/19 Calcium Carbonate/Vitamin D3 1 each PO DAILY 06/04/19 [Calcium 500 mg Chewable Tablet] Cholecalciferol (Vitamin D3) 1,000 unit PO DAILY 06/04/19 [Vitamin D3 -] Cholecalciferol (Vitamin D3) 1,000 unit PO DAILY 06/04/19 [Vitamin D3] Docusate Sodium [Colace] 200 mg PO BID 06/04/19 Ferrous Sulfate 325 mg PO DAILY 06/04/19 Irbesartan [Avapro] 150 mg PO HS 06/04/19 Mag Hydrox/Aluminum Hyd/Simeth 15 ml PO BID 06/04/19 [Donna-Lanta Liquid] Metoprolol Succinate 50 mg PO DAILY 06/04/19 Omeprazole Magnesium [Prilosec Otc] 20 mg PO DAILY 06/04/19 Polyethylene Glycol [Polyox 1 gm MC DAILY 06/04/19 Wsr-301] Potassium Chloride 2,500 gm MC TID 06/04/19 Psyllium Seed [Hydrocil Instant] 1 each PO DAILY 06/04/19 Vit A/Vit C/Vit E/Zinc/Copper 1 cap PO BID 06/04/19 [Preservision Areds Softgel] levoFLOXacin [Levaquin -] 500 mg PO DAILY #7 tablet 06/04/19 ASSESSMENT/PLAN: 89 year old female with history of AAA s/p recent open repair, HTN, HLD, GERD, Hemorrhoids, Hx UTIs, presented to ED from [facility] for evaluation of hematuria. There are also reported bloody bowel movements. 1. Hematuria On ceftriaxone empirically for possible UTI, Urine Cx < 40,000 CFU/ml. CT A/P - large hiatal hernia, atelectasis L lung, R effusion, infra-renal AAA 3.2 x 4.4cm, Thoracic AAA 4.9cm Urology consulted. 2. 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 Aspirin held. Continue Fe supplementation. Monitor H/H - transfuse PRN. FOBT positive. Awaiting GI consult. 3. STANISLAW vs CKD - Creat stable. Need to get an idea of baseline Creatinine. Gentle IV hydration 4. AAA, s/p recent open repair. Seen by Vascular Surgery - no further intervention at this time. Surgical wound Care. 5. HTN - Continue Toprol XL. Irbesartan held for now. 6. GERD - on Protonix. DVT Px - SCDs. Heparin held due to hematuria/FOBT + stool.
[2019-06-06 08:16] LABS: BLOOD UREA NITROGEN 30.8 mg/dL (7-18); CALCIUM 7.4 mg/dL (8.5-10.1); CREATININE 1.6 mg/dL (0.55-1.3); POTASSIUM 4.3 mmol/L (3.5-5.1)
[2019-06-06 08:18] LABS: BASO % 0.5 % (0-2.0); EOS % 1.4 % (0-4.5); HEMATOCRIT 19.2 % (32.4-45.2); LYMPH % 6.8 % (8-40); MCH 30.9 pg (25.7-33.7); MCHC 33.8 g/dl (32.0-36.0); MEAN CELL VOLUME 91.6 fl (80-96); MONO % 6.9 % (3.8-10.2); NEUT % 84.4 % (42.8-82.8); PLATELET COUNT 236 K/MM3 (134-434); RBC 2.09 M/mm3 (3.60-5.2); RDW 15.8 % (11.6-15.6)
--- NOTE | 2019-06-06 08:41 | CONSULT ---
Consult Consult Specialty:: urology Reason for Consultation:: hemorrhagic uti - History of Present Illness Chief Complaint: hemorrhagic uti History of Present Illness: Patient is an 89 year old female with multiple medical problems who presented with a hemorrhagic uti. Patient is afebrile with normal renal function and without leukocytosis on rocephin. Patient is on FeSO4 and does have constipation with mild urinary retention. Patient denies suprapubic pain or difficutly voiding. - History Source History Provided By: Medical Record, Caregiver Limitations to Obtaining History: Clinical Condition - Past Medical History ...: No - Alcohol/Substance Use Hx Alcohol Use: No - Smoking History Smoking history: Never smoked Have you smoked in the past 12 months: No Home Medications - Allergies Allergies/Adverse Reactions: Allergies Allergy/AdvReac Type Severity Reaction Status Date / Time No Known Allergies Allergy Verified 06/04/19 00:53 - Home Medications Home Medications: Ambulatory Orders Acetaminophen [Tylenol -] 1,000 mg PO BID 06/04/19 Aspirin 81 mg PO DAILY 06/04/19 Calcium Carbonate/Vitamin D3 [Calcium 500 mg Chewable Tablet] 1 each PO DAILY Cholecalciferol (Vitamin D3) [Vitamin D3 -] 1,000 unit PO DAILY 06/04/19 Cholecalciferol (Vitamin D3) [Vitamin D3] 1,000 unit PO DAILY 06/04/19 Docusate Sodium [Colace] 200 mg PO BID 06/04/19 Ferrous Sulfate 325 mg PO DAILY 06/04/19 Irbesartan [Avapro] 150 mg PO HS 06/04/19 Mag Hydrox/Aluminum Hyd/Simeth [Donna-Lanta Liquid] 15 ml PO BID 06/04/19 Metoprolol Succinate 50 mg PO DAILY 06/04/19 Omeprazole Magnesium [Prilosec Otc] 20 mg PO DAILY 06/04/19 Polyethylene Glycol [Polyox Wsr-301] 1 gm MC DAILY 06/04/19 Potassium Chloride 2,500 gm MC TID 06/04/19 Psyllium Seed [Hydrocil Instant] 1 each PO DAILY 06/04/19 Vit A/Vit C/Vit E/Zinc/Copper [Preservision Areds Softgel] 1 cap PO BID levoFLOXacin [Levaquin -] 500 mg PO DAILY #7 tablet 06/04/19 Physical Exam Vital Signs: Vital Signs Temperature 98.2 F 06/06/19 07:41 Pulse Rate 87 06/06/19 07:41 Respiratory Rate 20 06/06/19 07:41 Blood Pressure 139/76 06/06/19 07:41 O2 Sat by Pulse Oximetry (%) 97 06/05/19 09:00 Constitutional: Yes: No Distress, Calm Eyes: Yes: WNL, Conjunctiva Clear, EOM Intact HENT: Yes: WNL, Atraumatic, Normocephalic Neck: Yes: WNL, Supple, Trachea Midline Cardiovascular: Yes: Regular Rate and Rhythm Respiratory: Yes: Regular Gastrointestinal: Yes: Normal Bowel Sounds, Soft Renal/: Yes: WNL Labs: CBC, BMP 06/06/19 07:00 Imaging - Results Cat Scan: Report Reviewed (bilateral nonobstructing renal stone left side is 4mm ; left renal cyst noted; no hydronephrosis) Assessment/Plan impression hemorrhagic uti plan follow urine culture correct issue with constipation no indication for cystoscopy at this time
[2019-06-06 08:51] LABS: HEMOGLOBIN 6.5 GM/dL (10.7-15.3)
[2019-06-06] MEDS ORDERED: PT OWN MED DRAWER 7, Y5N ONE (09:49)
[2019-06-06] MEDS ORDERED: DEXTROSE 5%-WATER - 50 ML IVPB ONE (09:49)
[2019-06-06] MEDS ORDERED: cefTRIAXone SODIUM 1 GM VIAL ONE (09:49)
[2019-06-06] MEDS: CHOLECALCIFEROL (VIT D3) 1,000 UNIT (25 MCG) TABLET PO SCH (09:54)
[2019-06-06] MEDS: CEFTRIAXONE 1 GM in DEXTROSE 5%-WATER - 50 ML IVPB SCH (09:54)
[2019-06-06] MEDS: CALCIUM 500MG/VIT-D 200 UNITS COMBO TABLET (FP) PO SCH (09:54)
[2019-06-06] MEDS: POTASSIUM CHLORIDE TABS 20 MEQ TABLET.ER (FP) PO SCH (09:54)
[2019-06-06] MEDS: PANTOPRAZOLE 20 MG TABLET (FP) PO SCH (09:54)
[2019-06-06] MEDS: FERROUS SO4 325 MG TABLET (FP) PO SCH (09:54)
[2019-06-06] MEDS: MAG HYDROX/AL HYDROX/SIMETH 30 ML UNIT-DOSE CUP PO SCH ×2 (09:55→23:02)
[2019-06-06] MEDS: POLYETHYLENE GLYCOL 3350 119 GM BTL PO SCH (09:55)
[2019-06-06] MEDS: DOCUSATE SODIUM 100 MG CAPSULE (FP) PO SCH ×2 (09:55→23:03)
[2019-06-06 12:00] LABS: ANISOCYTOSIS 1+; MACROCYTOSIS 1+; OVALOCYTE 1+; PLATELET ESTIMATE NORMAL
--- NOTE | 2019-06-06 17:33 | CON.GI ---
Consult Consult Specialty:: Gastroenterology Referred by:: Dr. Grider Reason for Consultation:: Anemia, fobt positive - History of Present Illness History of Present Illness: 89yo female h/o extensive aortic vascular disease s/p EVAR in 2017, recent open aortic repair on 05/07/19 at [facility] presenting with hematuria asked to evaluate for anemia and positive FOBT. Pt confused, history limited. She is unclear of reason for admission, states she had recent surgery in ?June though unclear of what type. Reports abdominal discomfort at incisional sites, otherwise no complaints. Denies change in bowel pattern or blood in stools. Unclear if she has had prior endoscopy (not available in [facility] records). Labs at [facility] reviewed, Hb fluctuating ~ 7-10 during hospitalization. Unable to contact NOK sister Geovany to further discuss. Hb 6.5 today currently receiving 1u prbc. - History Source History Provided By: Patient, Medical Record - Past Medical History ...: No - Alcohol/Substance Use Hx Alcohol Use: No - Smoking History Smoking history: Never smoked Have you smoked in the past 12 months: No Home Medications - Allergies Allergies/Adverse Reactions: Allergies Allergy/AdvReac Type Severity Reaction Status Date / Time No Known Allergies Allergy Verified 06/04/19 00:53 - Home Medications Home Medications: Ambulatory Orders Acetaminophen [Tylenol -] 1,000 mg PO BID 06/04/19 Aspirin 81 mg PO DAILY 06/04/19 Calcium Carbonate/Vitamin D3 [Calcium 500 mg Chewable Tablet] 1 each PO DAILY Cholecalciferol (Vitamin D3) [Vitamin D3 -] 1,000 unit PO DAILY 06/04/19 Cholecalciferol (Vitamin D3) [Vitamin D3] 1,000 unit PO DAILY 06/04/19 Docusate Sodium [Colace] 200 mg PO BID 06/04/19 Ferrous Sulfate 325 mg PO DAILY 06/04/19 Irbesartan [Avapro] 150 mg PO HS 06/04/19 Mag Hydrox/Aluminum Hyd/Simeth [Donna-Lanta Liquid] 15 ml PO BID 06/04/19 Metoprolol Succinate 50 mg PO DAILY 06/04/19 Omeprazole Magnesium [Prilosec Otc] 20 mg PO DAILY 06/04/19 Polyethylene Glycol [Polyox Wsr-301] 1 gm MC DAILY 06/04/19 Potassium Chloride 2,500 gm MC TID 06/04/19 Psyllium Seed [Hydrocil Instant] 1 each PO DAILY 06/04/19 Vit A/Vit C/Vit E/Zinc/Copper [Preservision Areds Softgel] 1 cap PO BID levoFLOXacin [Levaquin -] 500 mg PO DAILY #7 tablet 06/04/19 Review of Systems Unable to obtain ROS, reason: History limited - Review of Systems Constitutional: reports: No Symptoms Cardiovascular: reports: No Symptoms Respiratory: reports: No Symptoms Gastrointestinal: reports: Abdominal Pain, Other (at incisional sites) Physical Exam-GI Vital Signs: Vital Signs Temperature 99.5 F 06/06/19 17:19 Pulse Rate 96 H 06/06/19 17:19 Respiratory Rate 20 06/06/19 17:19 Blood Pressure 132/73 06/06/19 17:19 O2 Sat by Pulse Oximetry (%) 97 06/06/19 09:00 Constitutional: Yes: No Distress, Calm, Other (Alert, oriented x 2 (person, place)) Cardiovascular: Yes: WNL, Regular Rate and Rhythm Respiratory: Yes: WNL, Regular, CTA Bilaterally Gastrointestinal Inspection: Yes: Scars, Other (Large midline incisional scar with wing intact) ...Palpate: Yes: Other (Abd soft, mildly tender mostly at incisional sites, wing in place, nondistended, no rebound, guarding or rigidity. Rectal exam: brown stool) Labs: CBC, BMP 06/06/19 07:00 06/06/19 07:00 Imaging - Results Cat Scan: Report Reviewed, Image Reviewed Problem List - Problems (1) Anemia Assessment/Plan: 89yo female h/o extensive aortic vascular disease s/p EVAR in 2017, recent open aortic repair on 05/07/19 at [facility] presenting with hematuria asked to evaluate for anemia and positive FOBT. Pt confused provides limited history. CT (noncontrast ) revealing large hiatal hernia with stomach in chest, anerysmal dilation of aorta, and fecal residue without obvious colonic abnormalities. Mass like density also seen at left lateral abd aorta near pancreatic body/tail. Unclear if pt has had prior endoscopies (not available in [facility] records). Anemia likely multifactorial in setting of renal disease/chronic disease and hematuria with component of iron deficiency noted. No blood on rectal exam. -Recommend continue resuscitative measures, prbc transfusion maintain Hb>7 -Follow up ferritin levels -Unclear if pt has had prior EGD or colonoscopy and while endoscopic evaluation could be considered the risks/benefits need to be carefully weighed particularly in setting of extensive aortic vascular disease/recent repair. -Attempted to contact pts JANUARY, Sister Geovany to discuss further however not able to reach at this time as will need to clarify goals of care -UGI series can be pursued in the interim to further evaluate considering CT findings of hiatal hernia -Would also advise repeat imaging with contrast enhanced CT if renal fctn allows or MRCP to re-evaluate the pancreas r/o mass -Recommend PPI daily -Miralax daily -If overt GI bleeding with drop in Hb or hemodynamic instability please notify GI for possible more urgent intervention -Further management of hemorrhagic UTI per primary team and urology. Code(s): D64.9 - ANEMIA, UNSPECIFIED
[2019-06-06 18:45] LABS: BASO % 1.1 % (0-2.0); EOS % 1.1 % (0-4.5); HEMATOCRIT 28.1 % (32.4-45.2); HEMOGLOBIN 9.1 GM/dL (10.7-15.3); LYMPH % 8.4 % (8-40); MCH 29.5 pg (25.7-33.7); MCHC 32.5 g/dl (32.0-36.0); MEAN CELL VOLUME 90.9 fl (80-96); MEAN PLT VOLUME 7.8 fl (7.5-11.1); MONO % 8.4 % (3.8-10.2); PLATELET COUNT 244 K/MM3 (134-434); RBC 3.09 M/mm3 (3.60-5.2); RDW 15.5 % (11.6-15.6); WHITE BLOOD COUNT 11.1 K/mm3 (4.0-10.0)
--- NOTE | 2019-06-06 19:04 | PN ---
Teaching Attending Note Name of Resident: Michelle Ambriz ATTENDING PHYSICIAN STATEMENT I saw and evaluated the patient. I reviewed the resident's note and discussed the case with the resident. I agree with the resident's findings and plan as documented. SUBJECTIVE: No complaints, Disoriented. OBJECTIVE: Afebrile, Hemodynamically Stable. Nursing reports dark/reddish urine. Last Vital Signs Temp Pulse Resp BP Pulse Ox 99.5 F 96 H 20 132/73 97 06/06/19 17:19 06/06/19 17:06/06/19 17:06/06/19 17:06/06/19 09:00 HEART: S1, S2, RRR LUNGS: Clear to auscultation ABDOMEN: Soft, normal BS, healing surgical incision with wing, mild suprapubic tenderness. EXTREMITIES: No edema, no calf tenderness. NEURO: AAO x 1. Moves all 4 extremities. Laboratory Results - last 24 hr 06/04/19 06/06/19 06/06/19 09:20 07:00 07:00 WBC 7.0 RBC 2.09 L Hgb 6.5 L* Hct 19.2 L MCV 91.6 MCH 30.9 MCHC 33.8 RDW 15.8 H Plt Count 236 MPV 7.0 L Absolute Neuts (auto) 5.9 Neutrophils % 84.4 H Neutrophils % (Manual) 81.0 Band Neutrophils % 0.0 Lymphocytes % 6.8 L D Lymphocytes % (Manual) 10.0 Monocytes % 6.9 Monocytes % (Manual) 6 Eosinophils % 1.4 Eosinophils % (Manual) 2.0 Basophils % 0.5 Basophils % (Manual) 1.0 Myelocytes % (Man) 0 Promyelocytes % (Man) 0 Blast Cells % (Manual) 0 Nucleated RBC % 0 Metamyelocytes 0 Hypochromia 0 Platelet Estimate Normal Polychromasia 0 Poikilocytosis 0 Anisocytosis 1+ Microcytosis 1+ Macrocytosis 1+ Ovalocytes 1+ Acanthocytes (Spur) 1+ Schistocytes 1+ Sodium 139 Potassium 4.3 Chloride 108 H Carbon Dioxide 23 Anion Gap 8 BUN 30.8 H Creatinine 1.6 H Est GFR (CKD-EPI)AfAm 32.77 Est GFR (CKD-EPI)NonAf 28.27 Random Glucose 88 Calcium 7.4 L Iron 22 L TIBC 130 L Iron Saturation 16 L Unsaturated IBC 108 L Ferritin 512.9 H Blood Type O POSITIVE Antibody Screen Negative Crossmatch See Detail 06/06/19 17:45 WBC 11.1 H RBC 3.09 L Hgb 9.1 L Hct 28.1 L D MCV 90.9 MCH 29.5 MCHC 32.5 RDW 15.5 Plt Count 244 MPV 7.8 D Absolute Neuts (auto) 9.0 H Neutrophils % 81.0 Neutrophils % (Manual) Band Neutrophils % Lymphocytes % 8.4 D Lymphocytes % (Manual) Monocytes % 8.4 Monocytes % (Manual) Eosinophils % 1.1 Eosinophils % (Manual) Basophils % 1.1 Basophils % (Manual) Myelocytes % (Man) Promyelocytes % (Man) Blast Cells % (Manual) Nucleated RBC % 0 Metamyelocytes Hypochromia Platelet Estimate Polychromasia Poikilocytosis Anisocytosis Microcytosis Macrocytosis Ovalocytes Acanthocytes (Spur) Schistocytes Sodium Potassium Chloride Carbon Dioxide Anion Gap BUN Creatinine Est GFR (CKD-EPI)AfAm Est GFR (CKD-EPI)NonAf Random Glucose Calcium Iron TIBC Iron Saturation Unsaturated IBC Ferritin Blood Type Antibody Screen Crossmatch Current Medications Generic Name Dose Route Start Last Admin Trade Name Freq PRN Reason Stop Dose Admin Acetaminophen 650 mg 06/04/19 07:54 Tylenol - PO Q4H PRN PAIN OR FEVER Al Hydroxide/Mg Hydroxide 15 ml 06/04/19 10:00 06/06/19 09:55 Mylanta Oral Suspension - PO Not Given BID ERA Calcium Carbonate/Cholecalciferol 1 tab 06/04/19 10:00 06/06/19 09:54 Os-Albert 500+D - PO 1 tab DAILY ERA Administration Cholecalciferol 1,000 unit 06/04/19 10:00 06/06/19 09:54 Vitamin D3 - PO 1,000 unit DAILY ERA Administration Docusate Sodium 200 mg 06/04/19 10:00 06/06/19 09:55 Colace - PO Not Given BID ERA Ferrous Sulfate 325 mg 06/04/19 10:00 06/06/19 09:54 Feosol - PO 325 mg DAILY ERA Administration Ceftriaxone Sodium 1 gm/ 50 mls @ 100 mls/hr 06/04/19 14:00 06/06/19 09:54 Dextrose IVPB 100 mls/hr DAILY ERA Administration Protocol Sodium Chloride 1,000 mls @ 100 mls/hr 06/04/19 15:37 06/05/19 15:34 Normal Saline - IV 100 mls/hr ASDIR ERA Administration Metoprolol Succinate 50 mg 06/04/19 10:00 06/06/19 09:54 Toprol Xl - PO 50 mg DAILY ERA Administration Pantoprazole Sodium 20 mg 06/04/19 10:00 06/06/19 09:54 Protonix - PO 20 mg DAILY ERA Administration Polyethylene Glycol 17 gm 06/04/19 10:00 06/06/19 09:55 Miralax (For Daily Use) - PO Not Given DAILY ERA Potassium Chloride 20 meq 06/04/19 10:00 06/06/19 09:54 K-Dur - PO 20 meq MoWeFr ERA Administration Home Medications Medication Instructions Recorded Acetaminophen [Tylenol -] 1,000 mg PO BID 06/04/19 Aspirin 81 mg PO DAILY 06/04/19 Calcium Carbonate/Vitamin D3 1 each PO DAILY 06/04/19 [Calcium 500 mg Chewable Tablet] Cholecalciferol (Vitamin D3) 1,000 unit PO DAILY 06/04/19 [Vitamin D3 -] Cholecalciferol (Vitamin D3) 1,000 unit PO DAILY 06/04/19 [Vitamin D3] Docusate Sodium [Colace] 200 mg PO BID 06/04/19 Ferrous Sulfate 325 mg PO DAILY 06/04/19 Irbesartan [Avapro] 150 mg PO HS 06/04/19 Mag Hydrox/Aluminum Hyd/Simeth 15 ml PO BID 06/04/19 [Donna-Lanta Liquid] Metoprolol Succinate 50 mg PO DAILY 06/04/19 Omeprazole Magnesium [Prilosec Otc] 20 mg PO DAILY 06/04/19 Polyethylene Glycol [Polyox 1 gm MC DAILY 06/04/19 Wsr-301] Potassium Chloride 2,500 gm MC TID 06/04/19 Psyllium Seed [Hydrocil Instant] 1 each PO DAILY 06/04/19 Vit A/Vit C/Vit E/Zinc/Copper 1 cap PO BID 06/04/19 [Preservision Areds Softgel] levoFLOXacin [Levaquin -] 500 mg PO DAILY #7 tablet 06/04/19 ASSESSMENT/PLAN: 89 year old female with history of AAA s/p recent open repair, HTN, HLD, GERD, Hemorrhoids, Hx UTIs, presented to ED from [facility] for evaluation of hematuria. There are also reported bloody bowel movements. 1. Hematuria On Ceftriaxone empirically for possible UTI, Urine Cx < 40,000 CFU/ml. CT A/P - large hiatal hernia, atelectasis L lung, R effusion, infra-renal AAA 3.2 x 4.4cm, Thoracic AAA 4.9cm Urology consulted. 2. Acute on Chronic Blood Loss Anemia secondary to Hematuria and possible GI blood loss. H/H 6.5/19.2 - will transfuse 1 unit PRBCs. Aspirin held. Continue Fe supplementation. Monitor H/H FOBT positive - GI consulted. 3. STANISLAW vs CKD - Creat stable. Need to get an idea of baseline Creatinine. Will hold further IV hydration 4. AAA, s/p recent open repair. Seen by Vascular Surgery - no further intervention at this time. Surgical wound Care/suture removal. 5. HTN - Continue Toprol XL. Irbesartan held for now. 6. GERD - on Protonix. DVT Px - SCDs. Heparin held due to hematuria/FOBT + stool.
[2019-06-06 19:42] LABS: ANISOCYTOSIS 0; HELMET CELLS 0; HOWELL-JOLLY BODIES 0; MACROCYTOSIS 0; OVALOCYTE 0; PLATELET ESTIMATE NORMAL; ROULEAU 0; SICKELED CELLS 0; TARGET CELLS 0; TEAR DROP CELLS 0; TOXIC GRANULATION 0
[2019-06-07 09:07] LABS: BASO % 0.6 % (0-2.0); HEMATOCRIT 25.2 % (32.4-45.2); HEMOGLOBIN 8.5 GM/dL (10.7-15.3); MCH 30.9 pg (25.7-33.7); MCHC 33.8 g/dl (32.0-36.0); MEAN CELL VOLUME 91.2 fl (80-96); MEAN PLT VOLUME 7.2 fl (7.5-11.1); MONO % 6.8 % (3.8-10.2); NEUT % 83.6 % (42.8-82.8); PLATELET COUNT 217 K/MM3 (134-434); RBC 2.76 M/mm3 (3.60-5.2); RDW 15.7 % (11.6-15.6); WHITE BLOOD COUNT 9.3 K/mm3 (4.0-10.0)
[2019-06-07 09:11] LABS: ALBUMIN 1.7 g/dl (3.4-5.0); BILIRUBIN,TOTAL 0.6 mg/dL (0.2-1); CALCIUM 7.7 mg/dL (8.5-10.1); CREATININE 1.5 mg/dL (0.55-1.3); POTASSIUM 4.8 mmol/L (3.5-5.1); TOT PROT 5.2 g/dl (6.4-8.2)
[2019-06-07 10:47] LABS: ANISOCYTOSIS 1+; MACROCYTOSIS 0; PLATELET ESTIMATE NORMAL
--- NOTE | 2019-06-07 11:37 | PN ---
Physical Exam: SUBJECTIVE: Patient seen and examined OBJECTIVE: Vital Signs Period Temp Pulse Resp BP Sys/Up Pulse Ox Last 24 Hr 97.7 F-99.5 F 86-96 20-20 114-145/58-85 98 GENERAL: The patient is awake, alert, and fully oriented, in no acute distress. HEAD: Normal with no signs of trauma. EYES: PERRL, extraocular movements intact, sclera anicteric, conjunctiva clear. No ptosis. ENT: Ears normal, nares patent, oropharynx clear without exudates, moist mucous membranes. NECK: Trachea midline, full range of motion, supple. LUNGS: Breath sounds equal, clear to auscultation bilaterally, no wheezes, no crackles, no accessory muscle use. HEART: Regular rate and rhythm, S1, S2 without murmur, rub or gallop. ABDOMEN: Soft, nontender, nondistended, normoactive bowel sounds, no guarding, no rebound, no hepatosplenomegaly, no masses. EXTREMITIES: 2+ pulses, warm, well-perfused, no edema. NEUROLOGICAL: Cranial nerves II through XII grossly intact. Normal speech, gait not observed. PSYCH: Normal mood, normal affect. SKIN: Warm, dry, normal turgor, no rashes or lesions noted Laboratory Results - last 24 hr 06/04/19 06/06/19 06/06/19 09:20 07:00 07:00 WBC RBC Hgb Hct MCV MCH MCHC RDW Plt Count MPV Absolute Neuts (auto) Neutrophils % Neutrophils % (Manual) 81.0 Band Neutrophils % 0.0 Lymphocytes % Lymphocytes % (Manual) 10.0 Monocytes % Monocytes % (Manual) 6 Eosinophils % Eosinophils % (Manual) 2.0 Basophils % Basophils % (Manual) 1.0 Myelocytes % (Man) 0 Promyelocytes % (Man) 0 Blast Cells % (Manual) 0 Nucleated RBC % Metamyelocytes 0 Hypochromia 0 Toxic Granulation Dohle Bodies Platelet Estimate Normal Polychromasia 0 Poikilocytosis 0 Basophilic Stippling Anisocytosis 1+ Microcytosis 1+ Macrocytosis 1+ Spherocytes Sickle Cells Target Cells Tear Drop Cells Ovalocytes 1+ Stomatocytes Helmet Cells [place] Bodies [place] Rings [place] Cells Acanthocytes (Spur) 1+ Rouleaux Fragmented RBCs Schistocytes 1+ Sodium Potassium Chloride Carbon Dioxide Anion Gap BUN Creatinine Est GFR (CKD-EPI)AfAm Est GFR (CKD-EPI)NonAf Random Glucose Calcium Transferrin 104 L Total Bilirubin AST ALT Alkaline Phosphatase Total Protein Albumin Blood Type O POSITIVE Antibody Screen Negative Crossmatch See Detail 06/06/19 06/07/19 06/07/19 17:45 08:01 08:01 WBC 11.1 H 9.3 RBC 3.09 L 2.76 L Hgb 9.1 L 8.5 L Hct 28.1 L D 25.2 L MCV 90.9 91.2 MCH 29.5 30.9 MCHC 32.5 33.8 RDW 15.5 15.7 H Plt Count 244 217 MPV 7.8 D 7.2 L Absolute Neuts (auto) 9.0 H 7.8 Neutrophils % 81.0 83.6 H Neutrophils % (Manual) 66.0 86.0 H Band Neutrophils % 19.4 0.0 Lymphocytes % 8.4 D 8.0 Lymphocytes % (Manual) 5.8 L D 8.0 D Monocytes % 8.4 6.8 Monocytes % (Manual) 4 5 Eosinophils % 1.1 1.0 Eosinophils % (Manual) 1.0 0.0 D Basophils % 1.1 0.6 Basophils % (Manual) 0.0 0.0 Myelocytes % (Man) 0 1 D Promyelocytes % (Man) 0 0 Blast Cells % (Manual) 0 0 Nucleated RBC % 0 0 Metamyelocytes 0 0 Hypochromia 0 0 Toxic Granulation 0 Dohle Bodies 0 Platelet Estimate Normal Normal Polychromasia 0 0 Poikilocytosis 0 0 Basophilic Stippling 0 Anisocytosis 0 1+ Microcytosis 0 0 Macrocytosis 0 0 Spherocytes 0 Sickle Cells 0 Target Cells 0 Tear Drop Cells 0 Ovalocytes 0 Stomatocytes 0 Helmet Cells 0 [place] Bodies 0 Morgan Rings 0 Kathi Cells 0 Acanthocytes (Spur) 0 Rouleaux 0 Fragmented RBCs 0 1+ Schistocytes 0 Sodium 138 Potassium 4.8 Chloride 107 Carbon Dioxide 23 Anion Gap 8 BUN 26.0 H Creatinine 1.5 H Est GFR (CKD-EPI)AfAm 35.43 Est GFR (CKD-EPI)NonAf 30.57 Random Glucose 97 Calcium 7.7 L Transferrin Total Bilirubin 0.6 AST 53 H ALT 45 Alkaline Phosphatase 110 Total Protein 5.2 L Albumin 1.7 L Blood Type Antibody Screen Crossmatch Active Medications Generic Name Dose Route Start Last Admin Trade Name Freq PRN Reason Stop Dose Admin Acetaminophen 650 mg 06/04/19 07:54 Tylenol - PO Q4H PRN PAIN OR FEVER Al Hydroxide/Mg Hydroxide 15 ml 06/04/19 10:00 06/06/19 23:02 Mylanta Oral Suspension - PO 15 ml BID ERA Administration Calcium Carbonate/Cholecalciferol 1 tab 06/04/19 10:00 06/06/19 09:54 Os-Albert 500+D - PO 1 tab DAILY ERA Administration Cholecalciferol 1,000 unit 06/04/19 10:00 06/06/19 09:54 Vitamin D3 - PO 1,000 unit DAILY ERA Administration Docusate Sodium 200 mg 06/04/19 10:00 06/06/19 23:03 Colace - PO 200 mg BID ERA Administration Ferrous Sulfate 325 mg 06/04/19 10:00 06/06/19 09:54 Feosol - PO 325 mg DAILY ERA Administration Metoprolol Succinate 50 mg 06/04/19 10:00 06/06/19 09:54 Toprol Xl - PO 50 mg DAILY ERA Administration Pantoprazole Sodium 20 mg 06/04/19 10:00 06/06/19 09:54 Protonix - PO 20 mg DAILY ERA Administration Polyethylene Glycol 17 gm 06/04/19 10:00 06/06/19 09:55 Miralax (For Daily Use) - PO Not Given DAILY ERA Potassium Chloride 20 meq 06/04/19 10:00 06/06/19 09:54 K-Dur - PO 20 meq MoWeFr REA Administration ASSESSMENT/PLAN: ATTENDING PHYSICIAN STATEMENT I saw and evaluated the patient. I reviewed the resident's note and discussed the case with the resident. I agree with the resident's findings and plan as documented. SUBJECTIVE: OBJECTIVE: ASSESSMENT AND PLAN:
[2019-06-07] MEDS: DOCUSATE SODIUM 100 MG CAPSULE (FP) PO SCH ×2 (12:42→21:26)
[2019-06-07] MEDS: CHOLECALCIFEROL (VIT D3) 1,000 UNIT (25 MCG) TABLET PO SCH (12:42)
[2019-06-07] MEDS: CALCIUM 500MG/VIT-D 200 UNITS COMBO TABLET (FP) PO SCH (12:42)
[2019-06-07] MEDS: POLYETHYLENE GLYCOL 3350 119 GM BTL PO SCH (12:43)
[2019-06-07] MEDS: FERROUS SO4 325 MG TABLET (FP) PO SCH (12:43)
[2019-06-07] MEDS: MAG HYDROX/AL HYDROX/SIMETH 30 ML UNIT-DOSE CUP PO SCH ×2 (12:43→21:25)
[2019-06-07] MEDS: PANTOPRAZOLE 20 MG TABLET (FP) PO SCH (12:44)
--- NOTE | 2019-06-07 14:15 | PN.GI ---
GI Progress Note Subjective: UGIS reveals stomach to be in chest Patient confused. Thinks she is in [facility] - Objective Vital Signs: Vital Signs Temperature 98 F 06/07/19 11:00 Pulse Rate 80 06/07/19 11:00 Respiratory Rate 20 06/07/19 11:00 Blood Pressure 130/71 06/07/19 11:00 O2 Sat by Pulse Oximetry (%) 98 06/07/19 09:00 Constitutional: Calm Eyes: No: Sclera Icterus Cardiovascular: Yes: Regular Rate and Rhythm Respiratory: Yes: Diminished (at bases bilaterally with poor insp. effort) Gastrointestinal Inspection: Yes: Scars (verttical midline abdominal scar with wing) ...Auscultate: Yes: Normoactive Bowel Sounds ...Palpate: Yes: Soft. No: Hepatomegaly, Splenomegaly, Tenderness ...Percussion: No: Tympanitic Neurological: Yes: Alert, Confusion Labs: CBC, BMP 06/07/19 08:01 06/07/19 08:01 Problem List - Problems (1) Anemia Assessment/Plan: Suspect multifactorial in nature given mixed iron indices, including hematuria No overt rectal bleeding or melena noted Recommend continue resuscitative measures, prbc transfusion maintain Hb>7 Unclear if pt has had prior EGD or colonoscopy and while endoscopic evaluation could be considered the risks/benefits need to be carefully weighed particularly in setting of extensive aortic vascular disease/recent repair. Would attempt conservative measures given advanced age and the above concerns. Dr. Ortez to contact pts JANUARY, Sister Geovany to discuss further however not able to reach at that time. Spoke with Sr. Armenta today and discussed case. She agrees with conservative measurements at this point. If active GI bleeding necessitating potentially life saving GI interventions, transfer to tertiary care center. Would also advise repeat imaging with contrast enhanced CT if renal function allows or MRCP to re-evaluate the pancreas r/o mass Protonix 40mg once daily MiraLAX 17g daily If overt GI bleeding with drop in Hb or hemodynamic instability please notify GI for possible more urgent intervention Further management of hemorrhagic UTI per primary team and urology. Code(s): D64.9 - ANEMIA, UNSPECIFIED Qualifiers: Anemia type: unspecified type Qualified Code(s): D64.9 - Anemia, unspecified
--- NOTE | 2019-06-07 17:28 | PN ---
Teaching Attending Note Name of Resident: Michelle Ambriz ATTENDING PHYSICIAN STATEMENT I saw and evaluated the patient. I reviewed the resident's note and discussed the case with the resident. I agree with the resident's findings and plan as documented. SUBJECTIVE: No complaints, more oriented, less confused. OBJECTIVE: Afebrile, Hemodynamically Stable. Slaughter draining pink urine Last Vital Signs Temp Pulse Resp BP Pulse Ox 98.9 F 88 20 132/87 98 06/07/19 17:12 06/07/19 17:12 06/07/19 17:12 06/07/19 17:12 06/07/19 09:00 HEART: S1, S2, RRR LUNGS: Clear to auscultation ABDOMEN: Soft, normal BS, healing surgical incision with wing, mild suprapubic tenderness. EXTREMITIES: No edema, no calf tenderness. NEURO: AAO x 2. Moves all 4 extremities. Laboratory Results - last 24 hr 06/06/19 06/06/19 06/07/19 07:00 17:45 08:01 WBC 11.1 H RBC 3.09 L Hgb 9.1 L Hct 28.1 L D MCV 90.9 MCH 29.5 MCHC 32.5 RDW 15.5 Plt Count 244 MPV 7.8 D Absolute Neuts (auto) 9.0 H Neutrophils % 81.0 Neutrophils % (Manual) 66.0 Band Neutrophils % 19.4 Lymphocytes % 8.4 D Lymphocytes % (Manual) 5.8 L D Monocytes % 8.4 Monocytes % (Manual) 4 Eosinophils % 1.1 Eosinophils % (Manual) 1.0 Basophils % 1.1 Basophils % (Manual) 0.0 Myelocytes % (Man) 0 Promyelocytes % (Man) 0 Blast Cells % (Manual) 0 Nucleated RBC % 0 Metamyelocytes 0 Hypochromia 0 Toxic Granulation 0 Dohle Bodies 0 Platelet Estimate Normal Polychromasia 0 Poikilocytosis 0 Basophilic Stippling 0 Anisocytosis 0 Microcytosis 0 Macrocytosis 0 Spherocytes 0 Sickle Cells 0 Target Cells 0 Tear Drop Cells 0 Ovalocytes 0 Stomatocytes 0 Helmet Cells 0 Varela-Teller Bodies 0 [place] Rings 0 Kathi Cells 0 Acanthocytes (Spur) 0 Rouleaux 0 Fragmented RBCs 0 Schistocytes 0 Sodium 138 Potassium 4.8 Chloride 107 Carbon Dioxide 23 Anion Gap 8 BUN 26.0 H Creatinine 1.5 H Est GFR (CKD-EPI)AfAm 35.43 Est GFR (CKD-EPI)NonAf 30.57 Random Glucose 97 Calcium 7.7 L Transferrin 104 L Total Bilirubin 0.6 AST 53 H ALT 45 Alkaline Phosphatase 110 Total Protein 5.2 L Albumin 1.7 L 06/07/19 08:01 WBC 9.3 RBC 2.76 L Hgb 8.5 L Hct 25.2 L MCV 91.2 MCH 30.9 MCHC 33.8 RDW 15.7 H Plt Count 217 MPV 7.2 L Absolute Neuts (auto) 7.8 Neutrophils % 83.6 H Neutrophils % (Manual) 86.0 H Band Neutrophils % 0.0 Lymphocytes % 8.0 Lymphocytes % (Manual) 8.0 D Monocytes % 6.8 Monocytes % (Manual) 5 Eosinophils % 1.0 Eosinophils % (Manual) 0.0 D Basophils % 0.6 Basophils % (Manual) 0.0 Myelocytes % (Man) 1 D Promyelocytes % (Man) 0 Blast Cells % (Manual) 0 Nucleated RBC % 0 Metamyelocytes 0 Hypochromia 0 Toxic Granulation Dohle Bodies Platelet Estimate Normal Polychromasia 0 Poikilocytosis 0 Basophilic Stippling Anisocytosis 1+ Microcytosis 0 Macrocytosis 0 Spherocytes Sickle Cells Target Cells Tear Drop Cells Ovalocytes Stomatocytes Helmet Cells Varela-Teller Bodies [place] Rings Kathi Cells Acanthocytes (Spur) Rouleaux Fragmented RBCs 1+ Schistocytes Sodium Potassium Chloride Carbon Dioxide Anion Gap BUN Creatinine Est GFR (CKD-EPI)AfAm Est GFR (CKD-EPI)NonAf Random Glucose Calcium Transferrin Total Bilirubin AST ALT Alkaline Phosphatase Total Protein Albumin Current Medications Generic Name Dose Route Start Last Admin Trade Name Freq PRN Reason Stop Dose Admin Acetaminophen 650 mg 06/04/19 07:54 Tylenol - PO Q4H PRN PAIN OR FEVER Al Hydroxide/Mg Hydroxide 15 ml 06/04/19 10:00 06/07/19 12:43 Mylanta Oral Suspension - PO 15 ml BID ERA Administration Calcium Carbonate/Cholecalciferol 1 tab 06/04/19 10:00 06/07/19 12:42 Os-Albert 500+D - PO 1 tab DAILY ERA Administration Cholecalciferol 1,000 unit 06/04/19 10:00 06/07/19 12:42 Vitamin D3 - PO 1,000 unit DAILY ERA Administration Docusate Sodium 200 mg 06/04/19 10:00 06/07/19 12:42 Colace - PO 200 mg BID ERA Administration Ferrous Sulfate 325 mg 06/04/19 10:00 06/07/19 12:43 Feosol - PO 325 mg DAILY ERA Administration Metoprolol Succinate 50 mg 06/04/19 10:00 06/07/19 12:42 Toprol Xl - PO 50 mg DAILY ERA Administration Pantoprazole Sodium 20 mg 06/04/19 10:00 06/07/19 12:44 Protonix - PO 20 mg DAILY ERA Administration Polyethylene Glycol 17 gm 06/04/19 10:00 06/07/19 12:43 Miralax (For Daily Use) - PO 17 gm DAILY ERA Administration Potassium Chloride 20 meq 06/04/19 10:00 06/06/19 09:54 K-Dur - PO 20 meq MoWeFr ERA Administration Home Medications Medication Instructions Recorded Acetaminophen [Tylenol -] 1,000 mg PO BID 06/04/19 Aspirin 81 mg PO DAILY 06/04/19 Calcium Carbonate/Vitamin D3 1 each PO DAILY 06/04/19 [Calcium 500 mg Chewable Tablet] Cholecalciferol (Vitamin D3) 1,000 unit PO DAILY 06/04/19 [Vitamin D3 -] Cholecalciferol (Vitamin D3) 1,000 unit PO DAILY 06/04/19 [Vitamin D3] Docusate Sodium [Colace] 200 mg PO BID 06/04/19 Ferrous Sulfate 325 mg PO DAILY 06/04/19 Irbesartan [Avapro] 150 mg PO HS 06/04/19 Mag Hydrox/Aluminum Hyd/Simeth 15 ml PO BID 06/04/19 [Donna-Lanta Liquid] Metoprolol Succinate 50 mg PO DAILY 06/04/19 Omeprazole Magnesium [Prilosec Otc] 20 mg PO DAILY 06/04/19 Polyethylene Glycol [Polyox 1 gm MC DAILY 06/04/19 Wsr-301] Potassium Chloride 2,500 gm MC TID 06/04/19 Psyllium Seed [Hydrocil Instant] 1 each PO DAILY 06/04/19 Vit A/Vit C/Vit E/Zinc/Copper 1 cap PO BID 06/04/19 [Preservision Areds Softgel] levoFLOXacin [Levaquin -] 500 mg PO DAILY #7 tablet 06/04/19 ASSESSMENT/PLAN: 89 year old female with history of AAA s/p recent open repair, HTN, HLD, GERD, Hemorrhoids, Hx UTIs, presented to ED from [facility] for evaluation of hematuria. There are also reported bloody bowel movements. 1. Hematuria Received Ceftriaxone empirically for possible UTI, Urine Cx: Proteus < 40,000 CFU/ml - ceftriaxone discontinued. CT A/P - large hiatal hernia, atelectasis L lung, R effusion, infra-renal AAA 3.2 x 4.4cm, Thoracic AAA 4.9cm, bladder wall thickening, hyperdenisty, possible mass in bladder wall. Urology consulted - no intervention or further Ix suggested. 2. Acute on Chronic Blood Loss Anemia secondary to Hematuria and possible GI blood loss. H/H 8.5/25.2 s/p 1 unit PRBCs. Aspirin held. Continue Fe supplementation. Monitor H/H FOBT positive. GI consulted - no invasive Ix forwarded by GI or agreed to by HCP. GI recommended upper GI series which just confirmed what was already known regarding large hiatal hernia. Regarding possible intrabdominal vs ?pancreatic mass, unclear which study gastroenterology thinks would be most beneficial, CT with contrast versus MRCP? 3. STANISLAW on CKD 3 - Creat stable, close to baseline. Nephrology consulted regaridng renal function and risk of suggested contrast study by GI. 4. AAA, s/p recent open repair at [facility]. Seen by Vascular Surgery - no further intervention at this time. Surgical wound Care/suture removal at [facility]. Will contact Vascular Sx to comment on CT findings regarding possible communication between intra-abdominal mass/collection and abdominal aorta. 5. HTN - Continue Toprol XL. Irbesartan held for now. 6. GERD - on Protonix. DVT Px - SCDs. Heparin held due to hematuria/FOBT + stool.
[2019-06-07] MEDS ORDERED: PT OWN MED DRAWER 7, Y5N ONE (21:20)
[2019-06-08 08:23] LABS: BASO % 0.8 % (0-2.0); EOS % 0.9 % (0-4.5); HEMATOCRIT 26.9 % (32.4-45.2); HEMOGLOBIN 9.3 GM/dL (10.7-15.3); LYMPH % 6.2 % (8-40); MCH 31.1 pg (25.7-33.7); MCHC 34.6 g/dl (32.0-36.0); MEAN CELL VOLUME 90.1 fl (80-96); MEAN PLT VOLUME 6.7 fl (7.5-11.1); MONO % 6.6 % (3.8-10.2); NEUT % 85.5 % (42.8-82.8); PLATELET COUNT 220 K/MM3 (134-434); RBC 2.98 M/mm3 (3.60-5.2); RDW 15.9 % (11.6-15.6); WHITE BLOOD COUNT 7.7 K/mm3 (4.0-10.0)
[2019-06-08 08:36] LABS: BLOOD UREA NITROGEN 22.8 mg/dL (7-18); CALCIUM 7.9 mg/dL (8.5-10.1); CREATININE 1.5 mg/dL (0.55-1.3)
[2019-06-08] MEDS: DOCUSATE SODIUM 100 MG CAPSULE (FP) PO SCH ×2 (09:26→21:14)
[2019-06-08] MEDS: MAG HYDROX/AL HYDROX/SIMETH 30 ML UNIT-DOSE CUP PO SCH ×2 (09:27→21:14)
[2019-06-08] MEDS: FERROUS SO4 325 MG TABLET (FP) PO SCH (09:27)
[2019-06-08] MEDS: CHOLECALCIFEROL (VIT D3) 1,000 UNIT (25 MCG) TABLET PO SCH (09:28)
[2019-06-08] MEDS: CALCIUM 500MG/VIT-D 200 UNITS COMBO TABLET (FP) PO SCH (09:28)
[2019-06-08] MEDS: PANTOPRAZOLE 20 MG TABLET (FP) PO SCH (09:28)
[2019-06-08] MEDS: POTASSIUM CHLORIDE TABS 20 MEQ TABLET.ER (FP) PO SCH (09:31)
[2019-06-08] MEDS: POLYETHYLENE GLYCOL 3350 119 GM BTL PO SCH (09:31)
[2019-06-08 12:23] LABS: ANISOCYTOSIS 2+; MACROCYTOSIS 1+; PLATELET ESTIMATE NORMAL; TARGET CELLS 1+; TEAR DROP CELLS 1+
--- NOTE | 2019-06-08 14:37 | PROC ---
Procedure Note Procedure: spoke with Dr Vila and CT scan reviewed, no evidence for vascular surgical issue that would lead to hematuria. Follow-up with Vascular Surgery at [facility] needed.
--- NOTE | 2019-06-08 14:41 | PN ---
Progress Note (short form) - Note Progress Note: A/P: 89 y/o F [place] w/ PMHx AAA well known to Vascular at [facility] (Dr Irby), HTN, HLD, sent from [place] for hematuria. Case d/w Dr Irby at [facility]. (06/05/19) Pt is complex s/p recent explant and AAA repair (05/07) As stated in previous vascular surgery note on 06/05/19. CT scan reviewed by Dr Vila CT, no evidence of active/acute vascular issues. No indication for acute vascular intervention. -Follow-up with Vascular Surgery at [facility] needed. -Pt should f/u upon discharge with Dr Irby at [facility] d/w attending Dr Vila
--- NOTE | 2019-06-08 17:47 | CONSULT ---
Consult Consult Specialty:: Nephrology Reason for Consultation:: STANISLAW and hematuria - History of Present Illness Chief Complaint: hematuria and blood in stool History of Present Illness: Pt is an 89 year old female with pmhx of recent AAA repair in [facility], HTN, HLD, GERD, hemorrhoids, and macular degeneration who presents to the er with hematuria and blood per rectum. She was found to have a hemorrhagic UTI. I was called to evaluate her for STANISLAW. She denies history of CKD. Her renal function has been improving. She denies fevers or chills. SHe denies nsaids use. She is a poor historian. - History Source History Provided By: Patient, Medical Record - Past Medical History Cardio/Vascular: Yes: Aneurysm, HTN, Hyperlipdemia ...: No - Past Surgical History Past Surgical History: Yes: AAA Repair - Alcohol/Substance Use Hx Alcohol Use: No - Smoking History Smoking history: Never smoked Have you smoked in the past 12 months: No Home Medications - Allergies Allergies/Adverse Reactions: Allergies Allergy/AdvReac Type Severity Reaction Status Date / Time No Known Allergies Allergy Verified 06/04/19 00:53 - Home Medications Home Medications: Ambulatory Orders Acetaminophen [Tylenol -] 1,000 mg PO BID 06/04/19 Aspirin 81 mg PO DAILY 06/04/19 Calcium Carbonate/Vitamin D3 [Calcium 500 mg Chewable Tablet] 1 each PO DAILY Cholecalciferol (Vitamin D3) [Vitamin D3 -] 1,000 unit PO DAILY 06/04/19 Cholecalciferol (Vitamin D3) [Vitamin D3] 1,000 unit PO DAILY 06/04/19 Docusate Sodium [Colace] 200 mg PO BID 06/04/19 Ferrous Sulfate 325 mg PO DAILY 06/04/19 Irbesartan [Avapro] 150 mg PO HS 06/04/19 Mag Hydrox/Aluminum Hyd/Simeth [Donna-Lanta Liquid] 15 ml PO BID 06/04/19 Metoprolol Succinate 50 mg PO DAILY 06/04/19 Omeprazole Magnesium [Prilosec Otc] 20 mg PO DAILY 06/04/19 Polyethylene Glycol [Polyox Wsr-301] 1 gm MC DAILY 06/04/19 Potassium Chloride 2,500 gm MC TID 06/04/19 Psyllium Seed [Hydrocil Instant] 1 each PO DAILY 06/04/19 Vit A/Vit C/Vit E/Zinc/Copper [Preservision Areds Softgel] 1 cap PO BID levoFLOXacin [Levaquin -] 500 mg PO DAILY #7 tablet 06/04/19 Family Medical History Family History: Denies Review of Systems - Review of Systems Constitutional: reports: Malaise Eyes: reports: No Symptoms HENT: reports: No Symptoms Neck: reports: No Symptoms Cardiovascular: reports: No Symptoms Respiratory: reports: No Symptoms Gastrointestinal: reports: Rectal Bleeding Genitourinary: reports: Hematuria Musculoskeletal: reports: No Symptoms Integumentary: reports: No Symptoms Neurological: reports: No Symptoms Endocrine: reports: No Symptoms Hematology/Lymphatic: reports: No Symptoms Psychiatric: reports: No Symptoms Physical Exam Vital Signs: Vital Signs Temperature 98.5 F 06/08/19 14:00 Pulse Rate 96 H 06/08/19 14:00 Respiratory Rate 20 06/08/19 14:00 Blood Pressure 118/58 L 06/08/19 14:00 O2 Sat by Pulse Oximetry (%) 98 06/08/19 09:00 Constitutional: Yes: Calm Eyes: Yes: Conjunctiva Clear HENT: Yes: Atraumatic Neck: Yes: Supple Cardiovascular: Yes: S1, S2 Respiratory: Yes: CTA Bilaterally Gastrointestinal: Yes: Soft Renal/: Yes: WNL Musculoskeletal: Yes: WNL Extremities: Yes: WNL Edema: No Neurological: Yes: Oriented Psychiatric: Yes: Oriented Labs: CBC, BMP 06/08/19 07:46 06/08/19 07:46 Laboratory Tests 06/04/19 06/04/19 06/04/19 02:36 02:46 04:07 Hgb Creatinine 2.1 H Urine Protein 3+ H Urine Blood 3+ H Urine Nitrite Positive H Stool Occult Blood Positive 06/04/19 06/05/19 06/06/19 23:00 07:00 07:00 Hgb Creatinine 2.1 H 1.9 H 1.6 H Urine Protein Urine Blood Urine Nitrite Stool Occult Blood 06/06/19 06/06/19 06/07/19 07:00 17:45 08:01 Hgb 6.5 L* 9.1 L Creatinine 1.5 H Urine Protein Urine Blood Urine Nitrite Stool Occult Blood 06/07/19 06/08/19 06/08/19 08:01 07:46 07:46 Hgb 8.5 L 9.3 L Creatinine 1.5 H Urine Protein Urine Blood Urine Nitrite Stool Occult Blood Imaging - Results Cat Scan: Report Reviewed Problem List - Problems (1) STANISLAW (acute kidney injury) Code(s): N17.9 - ACUTE KIDNEY FAILURE, UNSPECIFIED (2) Anemia Code(s): D64.9 - ANEMIA, UNSPECIFIED Qualifiers: Anemia type: unspecified type Qualified Code(s): D64.9 - Anemia, unspecified (3) UTI (urinary tract infection) Code(s): N39.0 - URINARY TRACT INFECTION, SITE NOT SPECIFIED Qualifiers: Urinary tract infection type: site unspecified Hematuria presence: with hematuria Qualified Code(s): N39.0 - Urinary tract infection, site not specified; R31.9 - Hematuria, unspecified Assessment/Plan Current Medications Generic Name Dose Route Start Last Admin Trade Name Freq PRN Reason Stop Dose Admin Acetaminophen 650 mg 06/04/19 07:54 Tylenol - PO Q4H PRN PAIN OR FEVER Al Hydroxide/Mg Hydroxide 15 ml 06/04/19 10:00 06/08/19 09:27 Mylanta Oral Suspension - PO 15 ml BID ERA Administration Calcium Carbonate/Cholecalciferol 1 tab 06/04/19 10:00 06/08/19 09:28 Os-Albert 500+D - PO 1 tab DAILY ERA Administration Cholecalciferol 1,000 unit 06/04/19 10:00 06/08/19 09:28 Vitamin D3 - PO 1,000 unit DAILY ERA Administration Docusate Sodium 200 mg 06/04/19 10:00 06/08/19 09:26 Colace - PO 200 mg BID ERA Administration Ferrous Sulfate 325 mg 06/04/19 10:00 06/08/19 09:27 Feosol - PO 325 mg DAILY ERA Administration Metoprolol Succinate 50 mg 06/04/19 10:00 06/08/19 09:28 Toprol Xl - PO 50 mg DAILY ERA Administration Pantoprazole Sodium 20 mg 06/04/19 10:00 06/08/19 09:28 Protonix - PO 20 mg DAILY ERA Administration Polyethylene Glycol 17 gm 06/04/19 10:00 06/08/19 09:31 Miralax (For Daily Use) - PO 17 gm DAILY ERA Administration Potassium Chloride 20 meq 06/04/19 10:00 06/08/19 09:31 K-Dur - PO 20 meq MoWeFr ERA Administration Impression 1. STANISLAW 2. anemia 3. s/p aaa repair 4. gi bleed 5. hematuria 6. uti 7. gerd 8. hld 9. 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
--- NOTE | 2019-06-08 17:56 | PN ---
Physical Exam: SUBJECTIVE: Patient seen and examined OBJECTIVE: Vital Signs Period Temp Pulse Resp BP Sys/Up Pulse Ox Last 24 Hr 97.9 F-99 F 92-103 20-22 110-132/58-76 98-98 GENERAL: The patient is awake, alert, and fully oriented, in no acute distress. HEAD: Normal with no signs of trauma. EYES: PERRL, extraocular movements intact, sclera anicteric, conjunctiva clear. No ptosis. ENT: Ears normal, nares patent, oropharynx clear without exudates, moist mucous membranes. NECK: Trachea midline, full range of motion, supple. LUNGS: Breath sounds equal, clear to auscultation bilaterally, no wheezes, no crackles, no accessory muscle use. HEART: Regular rate and rhythm, S1, S2 without murmur, rub or gallop. ABDOMEN: Soft, nontender, nondistended, normoactive bowel sounds, no guarding, no rebound, no hepatosplenomegaly, no masses. EXTREMITIES: 2+ pulses, warm, well-perfused, no edema. NEUROLOGICAL: Cranial nerves II through XII grossly intact. Normal speech, gait not observed. PSYCH: Normal mood, normal affect. SKIN: Warm, dry, normal turgor, no rashes or lesions noted Laboratory Results - last 24 hr 06/08/19 06/08/19 07:46 07:46 WBC 7.7 RBC 2.98 L Hgb 9.3 L Hct 26.9 L MCV 90.1 MCH 31.1 MCHC 34.6 RDW 15.9 H Plt Count 220 MPV 6.7 L Absolute Neuts (auto) 6.6 Neutrophils % 85.5 H Neutrophils % (Manual) 88.0 H Band Neutrophils % 2.0 Lymphocytes % 6.2 L D Lymphocytes % (Manual) 2.0 L D Monocytes % 6.6 Monocytes % (Manual) 3 L Eosinophils % 0.9 Eosinophils % (Manual) 2.0 D Basophils % 0.8 Basophils % (Manual) 1.0 D Myelocytes % (Man) 0 D Promyelocytes % (Man) 0 Blast Cells % (Manual) 0 Nucleated RBC % 0 Metamyelocytes 0 Hypochromia 0 Platelet Estimate Normal Polychromasia 0 Poikilocytosis 1+ Anisocytosis 2+ Microcytosis 1+ Macrocytosis 1+ Spherocytes 1+ Target Cells 1+ Tear Drop Cells 1+ Kathi Cells 1+ Acanthocytes (Spur) 1+ Sodium 138 Potassium 4.0 Chloride 104 Carbon Dioxide 25 Anion Gap 8 BUN 22.8 H Creatinine 1.5 H Est GFR (CKD-EPI)AfAm 35.43 Est GFR (CKD-EPI)NonAf 30.57 Random Glucose 87 Calcium 7.9 L Active Medications Generic Name Dose Route Start Last Admin Trade Name Freq PRN Reason Stop Dose Admin Acetaminophen 650 mg 06/04/19 07:54 Tylenol - PO Q4H PRN PAIN OR FEVER Al Hydroxide/Mg Hydroxide 15 ml 06/04/19 10:00 06/08/19 09:27 Mylanta Oral Suspension - PO 15 ml BID ERA Administration Calcium Carbonate/Cholecalciferol 1 tab 06/04/19 10:00 06/08/19 09:28 Os-Albert 500+D - PO 1 tab DAILY ERA Administration Cholecalciferol 1,000 unit 06/04/19 10:00 06/08/19 09:28 Vitamin D3 - PO 1,000 unit DAILY ERA Administration Docusate Sodium 200 mg 06/04/19 10:00 06/08/19 09:26 Colace - PO 200 mg BID ERA Administration Ferrous Sulfate 325 mg 06/04/19 10:00 06/08/19 09:27 Feosol - PO 325 mg DAILY ERA Administration Metoprolol Succinate 50 mg 06/04/19 10:00 06/08/19 09:28 Toprol Xl - PO 50 mg DAILY ERA Administration Pantoprazole Sodium 20 mg 06/04/19 10:00 06/08/19 09:28 Protonix - PO 20 mg DAILY ERA Administration Polyethylene Glycol 17 gm 06/04/19 10:00 06/08/19 09:31 Miralax (For Daily Use) - PO 17 gm DAILY ERA Administration Potassium Chloride 20 meq 06/04/19 10:00 06/08/19 09:31 K-Dur - PO 20 meq MoWeFr ERA Administration ASSESSMENT/PLAN: ATTENDING PHYSICIAN STATEMENT I saw and evaluated the patient. I reviewed the resident's note and discussed the case with the resident. I agree with the resident's findings and plan as documented. SUBJECTIVE: OBJECTIVE: ASSESSMENT AND PLAN:
--- NOTE | 2019-06-08 18:35 | PN ---
Teaching Attending Note Name of Resident: Michelle Ambriz ATTENDING PHYSICIAN STATEMENT I saw and evaluated the patient. I reviewed the resident's note and discussed the case with the resident. I agree with the resident's findings and plan as documented. SUBJECTIVE: No complaints, more oriented, less confused. OBJECTIVE: Afebrile, Hemodynamically Stable. Pinkish, blood tinged urine ongoing. Last Vital Signs Temp Pulse Resp BP Pulse Ox 97.6 F 85 18 122/68 98 06/08/19 18:03 06/08/19 18:03 06/08/19 18:03 06/08/19 18:03 06/08/19 09:00 HEART: S1, S2, RRR LUNGS: Clear to auscultation ABDOMEN: Soft, normal BS, healing surgical incision with wing, mild suprapubic tenderness. EXTREMITIES: No edema, no calf tenderness. NEURO: AAO x 2. Moves all 4 extremities. Laboratory Results - last 24 hr 06/08/19 06/08/19 07:46 07:46 WBC 7.7 RBC 2.98 L Hgb 9.3 L Hct 26.9 L MCV 90.1 MCH 31.1 MCHC 34.6 RDW 15.9 H Plt Count 220 MPV 6.7 L Absolute Neuts (auto) 6.6 Neutrophils % 85.5 H Neutrophils % (Manual) 88.0 H Band Neutrophils % 2.0 Lymphocytes % 6.2 L D Lymphocytes % (Manual) 2.0 L D Monocytes % 6.6 Monocytes % (Manual) 3 L Eosinophils % 0.9 Eosinophils % (Manual) 2.0 D Basophils % 0.8 Basophils % (Manual) 1.0 D Myelocytes % (Man) 0 D Promyelocytes % (Man) 0 Blast Cells % (Manual) 0 Nucleated RBC % 0 Metamyelocytes 0 Hypochromia 0 Platelet Estimate Normal Polychromasia 0 Poikilocytosis 1+ Anisocytosis 2+ Microcytosis 1+ Macrocytosis 1+ Spherocytes 1+ Target Cells 1+ Tear Drop Cells 1+ Kathi Cells 1+ Acanthocytes (Spur) 1+ Sodium 138 Potassium 4.0 Chloride 104 Carbon Dioxide 25 Anion Gap 8 BUN 22.8 H Creatinine 1.5 H Est GFR (CKD-EPI)AfAm 35.43 Est GFR (CKD-EPI)NonAf 30.57 Random Glucose 87 Calcium 7.9 L Current Medications Generic Name Dose Route Start Last Admin Trade Name Freq PRN Reason Stop Dose Admin Acetaminophen 650 mg 06/04/19 07:54 Tylenol - PO Q4H PRN PAIN OR FEVER Al Hydroxide/Mg Hydroxide 15 ml 06/04/19 10:00 06/08/19 09:27 Mylanta Oral Suspension - PO 15 ml BID ERA Administration Calcium Carbonate/Cholecalciferol 1 tab 06/04/19 10:00 06/08/19 09:28 Os-Ablert 500+D - PO 1 tab DAILY ERA Administration Cholecalciferol 1,000 unit 06/04/19 10:00 06/08/19 09:28 Vitamin D3 - PO 1,000 unit DAILY ERA Administration Docusate Sodium 200 mg 06/04/19 10:00 06/08/19 09:26 Colace - PO 200 mg BID ERA Administration Ferrous Sulfate 325 mg 06/04/19 10:00 06/08/19 09:27 Feosol - PO 325 mg DAILY ERA Administration Metoprolol Succinate 50 mg 06/04/19 10:00 06/08/19 09:28 Toprol Xl - PO 50 mg DAILY ERA Administration Pantoprazole Sodium 20 mg 06/04/19 10:00 06/08/19 09:28 Protonix - PO 20 mg DAILY ERA Administration Polyethylene Glycol 17 gm 06/04/19 10:00 06/08/19 09:31 Miralax (For Daily Use) - PO 17 gm DAILY ERA Administration Potassium Chloride 20 meq 06/04/19 10:00 06/08/19 09:31 K-Dur - PO 20 meq MoWeFr ERA Administration Home Medications Medication Instructions Recorded Acetaminophen [Tylenol -] 1,000 mg PO BID 06/04/19 Aspirin 81 mg PO DAILY 06/04/19 Calcium Carbonate/Vitamin D3 1 each PO DAILY 06/04/19 [Calcium 500 mg Chewable Tablet] Cholecalciferol (Vitamin D3) 1,000 unit PO DAILY 06/04/19 [Vitamin D3 -] Cholecalciferol (Vitamin D3) 1,000 unit PO DAILY 06/04/19 [Vitamin D3] Docusate Sodium [Colace] 200 mg PO BID 06/04/19 Ferrous Sulfate 325 mg PO DAILY 06/04/19 Irbesartan [Avapro] 150 mg PO HS 06/04/19 Mag Hydrox/Aluminum Hyd/Simeth 15 ml PO BID 06/04/19 [Donna-Lanta Liquid] Metoprolol Succinate 50 mg PO DAILY 06/04/19 Omeprazole Magnesium [Prilosec Otc] 20 mg PO DAILY 06/04/19 Polyethylene Glycol [Polyox 1 gm MC DAILY 06/04/19 Wsr-301] Potassium Chloride 2,500 gm MC TID 06/04/19 Psyllium Seed [Hydrocil Instant] 1 each PO DAILY 06/04/19 Vit A/Vit C/Vit E/Zinc/Copper 1 cap PO BID 06/04/19 [Preservision Areds Softgel] levoFLOXacin [Levaquin -] 500 mg PO DAILY #7 tablet 06/04/19 ASSESSMENT/PLAN: 89 year old female with history of AAA s/p recent open repair, HTN, HLD, GERD, Hemorrhoids, Hx UTIs, presented to ED from [facility] for evaluation of hematuria. There are also reported bloody bowel movements. 1. Hematuria Received Ceftriaxone empirically for possible UTI, Urine Cx: Proteus < 40,000 CFU/ml - ceftriaxone discontinued. CT A/P - large hiatal hernia, atelectasis L lung, R effusion, infra-renal AAA 3.2 x 4.4cm, Thoracic AAA 4.9cm, bladder wall thickening, hyperdenisty, possible mass in bladder wall. Urology consulted - discussed at length with Dr. oJel Back - no intervention or further Ix suggested at this time. Recommendation is for out-patient follow up. 2. Acute on Chronic Blood Loss Anemia secondary to Hematuria and possible GI blood loss. H/H 9.3/26.9 s/p 1 unit PRBCs. Aspirin held. Continue Fe supplementation. Monitor H/H FOBT positive. GI consulted - no plan for invasive Ix (EGD or Colonoscopy) forwarded by GI or agreed to by HCP. GI recommended upper GI series which just confirmed what was already known regarding large hiatal hernia. Regarding possible intrabdominal vs ?pancreatic mass, unclear which study gastroenterology thinks would be most beneficial, CT with contrast versus MRCP?. Either way, due to elevated Creatinine, neither study was ordered by GI. Discussed with patient's surgeon at [facility] - last CT Scan 09/30 does not show any pancreatic mass - current CT findings likely to be post-inflammatory changes s/p vascular surgery rather than leak or de andrew mass. 3. STANISLAW on CKD 3 - Creat stable, close to baseline. Nephrology consulted. 4. AAA, s/p recent open repair at [facility]. Seen by Vascular Surgery - no further intervention at this time. Surgical wound Care/suture removal at [facility]. CT findings regarding possible communication between intra-abdominal mass/ collection and abdominal aorta was discussed with Dr. Irby (Vascular Surgery at [facility]), who thinks these findings are consistent with post-surgical inflammatory changes. He does not believe any acute further investigation or intervention is required at this time. Arrangements have been made for out- patient follow up with Vascular Surgery (Dr. Irby) on June 12 at 11am. 5. HTN - Continue Toprol XL. Irbesartan held for now due to STANISLAW and borderline BP. 6. GERD - on Protonix. DVT Px - SCDs. Heparin held due to hematuria/FOBT + stool. Dispo - for discharge to [facility] tomorrow.
[2019-06-09 07:55] LABS: BASO % 0.8 % (0-2.0); EOS % 1.1 % (0-4.5); HEMATOCRIT 29.1 % (32.4-45.2); HEMOGLOBIN 9.8 GM/dL (10.7-15.3); LYMPH % 7.7 % (8-40); MCH 30.8 pg (25.7-33.7); MCHC 33.6 g/dl (32.0-36.0); MEAN CELL VOLUME 91.7 fl (80-96); MONO % 7.2 % (3.8-10.2); NEUT % 83.2 % (42.8-82.8); PLATELET COUNT 206 K/MM3 (134-434); RBC 3.18 M/mm3 (3.60-5.2); RDW 15.9 % (11.6-15.6); WHITE BLOOD COUNT 7.6 K/mm3 (4.0-10.0)
[2019-06-09] MEDS ORDERED: PT OWN MED DRAWER 7, Y5N ONE (09:30)
[2019-06-09] MEDS: FERROUS SO4 325 MG TABLET (FP) PO SCH (09:32)
[2019-06-09] MEDS: DOCUSATE SODIUM 100 MG CAPSULE (FP) PO SCH (09:32)
[2019-06-09] MEDS: PANTOPRAZOLE 20 MG TABLET (FP) PO SCH (09:32)
[2019-06-09] MEDS: CALCIUM 500MG/VIT-D 200 UNITS COMBO TABLET (FP) PO SCH (09:32)
[2019-06-09] MEDS: MAG HYDROX/AL HYDROX/SIMETH 30 ML UNIT-DOSE CUP PO SCH (09:32)
[2019-06-09] MEDS: CHOLECALCIFEROL (VIT D3) 1,000 UNIT (25 MCG) TABLET PO SCH (09:32)
[2019-06-09] MEDS: POLYETHYLENE GLYCOL 3350 119 GM BTL PO SCH (09:35)
--- NOTE | 2019-06-09 12:19 | DS ---
Physical Exam: SUBJECTIVE: Patient seen and examined, without complaints, no overnight events. OBJECTIVE: Vital Signs Temperature 98.2 F 06/09/19 14:00 Pulse Rate 96 H 06/09/19 14:00 Respiratory Rate 20 06/09/19 14:00 Blood Pressure 103/65 06/09/19 14:00 O2 Sat by Pulse Oximetry (%) 98 06/09/19 09:00 PHYSICAL EXAM GENERAL: The patient is awake, alert, and fully oriented, in no acute distress. HEAD: Normal with no signs of trauma. EYES: PERRL, extraocular movements intact, sclera anicteric, conjunctiva clear. ENT: Ears normal, nares patent, oropharynx clear without exudates, moist mucous membranes. NECK: Trachea midline, full range of motion, supple. LUNGS: Breath sounds equal, clear to auscultation bilaterally, no wheezes, no crackles, no accessory muscle use. HEART: Regular rate and rhythm, S1, S2 without murmur, rub or gallop. ABDOMEN: Soft, nontender, nondistended, normoactive bowel sounds, no guarding, no rebound, no hepatosplenomegaly, no masses. EXTREMITIES: 2+ pulses, warm, well-perfused, no edema. NEUROLOGICAL: Cranial nerves II through XII grossly intact. Normal speech, gait not observed. PSYCH: Normal mood, normal affect. SKIN: Warm, dry, normal turgor, no rashes or lesions noted. LABS CBC, BMP 06/09/19 07:23 06/08/19 07:46 HOSPITAL COURSE: Date of Admission:06/04/19 Patient is a 89 y/o female from [facility] with a history of AAA, HTN, HLD, who is sent in from [facility] for hematuria. Patient had recently undergone a AAA repair. Patient was evalauted by urology and hematuria will be followed as an outpatient. Patient thought to have UTI but cultures < 40,000 and abx stopped. Patient presented with anemia. Patient received 1 unit of blood while in the hospital. GI evaluated patient and after family discussion opted for conservative management. Team discussed with AAA with surgeon and imaging that showed questionable mass or edema was determined to be normal post op changes. Patient will follow up with the surgeon as an outpatient. While patient was here her creatinine increase. Nephrology was consulted and creatinine monitored and began to trend down. Patient will follow up with PCP in one week for repeat labs. Patient stable with stable vitals and discharged back to her retirement. UCX: proteus Mirabils, < 40,000 colonies ABD/Pelvis CT: thickened bladder wall, left renal cyst with nonobstructing stone Date of Discharge: 06/09/19 Minutes to complete discharge: 45 Discharge Summary Problems reviewed: Yes Reason For Visit: UTI,GASTROINTESTINAL HEMORRHAGE Current Active Problems STANISLAW (acute kidney injury) (Acute) Anemia (Acute) UTI (urinary tract infection) (Acute) Condition: Stable - Instructions Diet, Activity, Other Instructions: You were admitted to the hospital for blood in your urine and in your stool. You were transfused blood and You are now stable to go back to [facility]. The blood in your urine has cleared up and to continue to have your urine monitored and bladder checked due to thickening on CT Scan, please follow up with the urologist Dr. Joel Back within one week. You were also evaluated by a Lead Php Developer while in the hospital for blood positive stool. Please make an appointment to follow up with the Lead Php Developer in one week to further monitor your low blood levels and to determine if any other testing is necessary. While you were here your kidney function increased. You kidney function is resolving but please follow up with your primary care physician in one week and have repeat blood work (CMP), along with Nephrology follow up. Follow up appointment with Dr Flex Harmon (VASCULAR SURGERY) at [facility] scheduled June 12 at 11am for follow up for AAA repair, abdnormal CT findings (which were discussed with him), and suture removal. Continue all medications as prescribed. Irbesartan held temporarily due to mild worsening of renal functiona nd borderline blood pressure. This can be reassed next week with BP check and repeat labs with consideration for resuming Irbesartan. Aspirin also held due to hematuria and blood in stool. Return to the Emergency Department if you have any nausea, vomiting, headache, chest pain, or shortness of breath. Referrals: Miguel Salinas MD [Primary Care Provider] - 1 Week Theodore Diaz MD [Staff Physician] - 1 Week Alma Ortez MD [Staff Physician] - 1 Week Flex Irby [Non Staff, Medical] - 1 Week Carmelina Bills MD [Staff Physician] - 1 Week Disposition: [facility]ACILITY - Home Medications Comprehensive Discharge Medication List: Ambulatory Orders Acetaminophen [Tylenol .Extra-Strength -] 1,000 mg PO BID 06/04/19 Aspirin 81 mg PO DAILY 06/04/19 Calcium Carbonate/Vitamin D3 [Calcium 500 mg Chewable Tablet] 1 each PO DAILY Cholecalciferol (Vitamin D3) [Vitamin D3 -] 1,000 unit PO DAILY 06/04/19 Cholecalciferol (Vitamin D3) [Vitamin D3] 1,000 unit PO DAILY 06/04/19 Docusate Sodium [Colace] 200 mg PO BID 06/04/19 Ferrous Sulfate 325 mg PO DAILY 06/04/19 Irbesartan [Avapro] 150 mg PO HS 06/04/19 Mag Hydrox/Aluminum Hyd/Simeth [Donna-Lanta Liquid] 15 ml PO BID 06/04/19 Metoprolol Succinate 50 mg PO DAILY 06/04/19 Omeprazole Magnesium [Prilosec Otc] 20 mg PO DAILY 06/04/19 Polyethylene Glycol [Polyox Wsr-301] 1 gm MC DAILY 06/04/19 Psyllium Seed [Hydrocil Instant] 1 each PO DAILY 06/04/19 Vit A/Vit C/Vit E/Zinc/Copper [Preservision Areds Softgel] 1 cap PO BID This patient is new to me today: No Emergency Visit: No Critical Care patient: No - Discharge Referral Referred to [facility] No ATTENDING PHYSICIAN STATEMENT I saw and evaluated the patient. I reviewed the resident's note and discussed the case with the resident. I agree with the resident's findings and plan as documented. SUBJECTIVE: OBJECTIVE: ASSESSMENT AND PLAN:
--- NOTE | 2019-06-09 13:47 | PN ---
Teaching Attending Note Name of Resident: Marium Acuña ATTENDING PHYSICIAN STATEMENT I saw and evaluated the patient. I reviewed the resident's note and discussed the case with the resident. I agree with the resident's findings and plan as documented. SUBJECTIVE: No complaints, at baseline mental status. OBJECTIVE: Afebrile, Hemodynamically Stable. Hematuria resolved. Last Vital Signs Temp Pulse Resp BP Pulse Ox 98.4 F 82 20 128/69 98 06/09/19 06:51 06/09/19 06:51 06/09/19 09:00 06/09/19 06:51 06/09/19 09:00 HEART: S1, S2, RRR LUNGS: Clear to auscultation ABDOMEN: Soft, normal BS, healing surgical incision with wing. bowel Sounds normal. EXTREMITIES: No edema, no calf tenderness. NEURO: AAO x 1-2. Moves all 4 extremities. Laboratory Results - last 24 hr 06/04/19 06/09/19 09:20 07:23 WBC 7.6 RBC 3.18 L Hgb 9.8 L Hct 29.1 L MCV 91.7 MCH 30.8 MCHC 33.6 RDW 15.9 H Plt Count 206 MPV 7.0 L Absolute Neuts (auto) 6.3 Neutrophils % 83.2 H Lymphocytes % 7.7 L D Monocytes % 7.2 Eosinophils % 1.1 Basophils % 0.8 Nucleated RBC % 0 Blood Type O POSITIVE Antibody Screen Negative Crossmatch See Detail Current Medications Generic Name Dose Route Start Last Admin Trade Name Freq PRN Reason Stop Dose Admin Acetaminophen 650 mg 06/04/19 07:54 Tylenol - PO Q4H PRN PAIN OR FEVER Al Hydroxide/Mg Hydroxide 15 ml 06/04/19 10:00 06/09/19 09:32 Mylanta Oral Suspension - PO 15 ml BID ERA Administration Calcium Carbonate/Cholecalciferol 1 tab 06/04/19 10:00 06/09/19 09:32 Os-Albert 500+D - PO 1 tab DAILY ERA Administration Cholecalciferol 1,000 unit 06/04/19 10:00 06/09/19 09:32 Vitamin D3 - PO 1,000 unit DAILY ERA Administration Docusate Sodium 200 mg 06/04/19 10:00 06/09/19 09:32 Colace - PO 200 mg BID ERA Administration Ferrous Sulfate 325 mg 06/04/19 10:00 06/09/19 09:32 Feosol - PO 325 mg DAILY ERA Administration Metoprolol Succinate 50 mg 06/04/19 10:00 06/09/19 09:32 Toprol Xl - PO 50 mg DAILY ERA Administration Pantoprazole Sodium 20 mg 06/04/19 10:00 06/09/19 09:32 Protonix - PO 20 mg DAILY ERA Administration Polyethylene Glycol 17 gm 06/04/19 10:00 06/09/19 09:35 Miralax (For Daily Use) - PO 17 grams DAILY ERA Administration Potassium Chloride 20 meq 06/04/19 10:00 06/08/19 09:31 K-Dur - PO 20 meq MoWeFr ERA Administration Home Medications Medication Instructions Recorded Acetaminophen [Tylenol 1,000 mg PO BID 06/04/19 .Extra-Strength -] Aspirin 81 mg PO DAILY 06/04/19 Calcium Carbonate/Vitamin D3 1 each PO DAILY 06/04/19 [Calcium 500 mg Chewable Tablet] Cholecalciferol (Vitamin D3) 1,000 unit PO DAILY 06/04/19 [Vitamin D3 -] Cholecalciferol (Vitamin D3) 1,000 unit PO DAILY 06/04/19 [Vitamin D3] Docusate Sodium [Colace] 200 mg PO BID 06/04/19 Ferrous Sulfate 325 mg PO DAILY 06/04/19 Irbesartan [Avapro] 150 mg PO HS 06/04/19 Mag Hydrox/Aluminum Hyd/Simeth 15 ml PO BID 06/04/19 [Donna-Lanta Liquid] Metoprolol Succinate 50 mg PO DAILY 06/04/19 Omeprazole Magnesium [Prilosec Otc] 20 mg PO DAILY 06/04/19 Polyethylene Glycol [Polyox 1 gm MC DAILY 06/04/19 Wsr-301] Psyllium Seed [Hydrocil Instant] 1 each PO DAILY 06/04/19 Vit A/Vit C/Vit E/Zinc/Copper 1 cap PO BID 06/04/19 [Preservision Areds Softgel] ASSESSMENT/PLAN: 89 year old female with history of AAA s/p recent open repair, HTN, HLD, GERD, Hemorrhoids, Hx UTIs, presented to ED from [facility] for evaluation of hematuria. There are also reported bloody bowel movements. 1. Hematuria - resolved Received Ceftriaxone empirically for possible UTI, Urine Cx: Proteus < 40,000 CFU/ml - ceftriaxone discontinued. CT A/P - large hiatal hernia, atelectasis L lung, R effusion, infra-renal AAA 3.2 x 4.4cm, Thoracic AAA 4.9cm, bladder wall thickening, hyperdenisty, possible mass in bladder wall. Urology consulted - discussed at length with Dr. Joel Back - no intervention or further Ix suggested at this time. Recommendation is for out-patient follow up. 2. Acute on Chronic Blood Loss Anemia secondary to Hematuria and possible GI blood loss. H/H 9.3/26.9 s/p 1 unit PRBCs. Aspirin held. Continue Fe supplementation. Monitor H/H FOBT positive. GI consulted - no plan for invasive Ix (EGD or Colonoscopy) forwarded by GI or agreed to by HCP. GI recommended upper GI series which just confirmed what was already known regarding large hiatal hernia. Regarding possible intrabdominal vs ?pancreatic mass, unclear which study gastroenterology thinks would be most beneficial, CT with contrast versus MRCP?. Either way, due to elevated Creatinine, neither study was ordered by GI. Discussed with patient's surgeon at [facility] - last CT Scan 09/30 does not show any pancreatic mass - current CT findings likely to be post-inflammatory changes s/p vascular surgery rather than leak or de andrew mass. 3. STANISLAW on CKD 3 - Creat stable, close to baseline. Nephrology evaluated. Renal US - L exophytic simple cyst. Mild L hydronephrosis. For out-patient Urology follow up as per Dr. Joel Back 4. AAA, s/p recent open repair at [facility]. Seen by Vascular Surgery - no further intervention at this time. Surgical wound Care/suture removal at [facility]. CT findings regarding possible communication between intra-abdominal mass/ collection and abdominal aorta was discussed with Dr. Irby (Vascular Surgery at [facility]), who thinks these findings are consistent with post-surgical inflammatory changes. He does not believe any acute further investigation or intervention is required at this time. Arrangements have been made for out- patient follow up with Vascular Surgery (Dr. Irby) on June 12 at 11am. 5. HTN - Continue Toprol XL. Irbesartan held for now due to STANISLAW and borderline BP. 6. GERD - on Protonix. DVT Px - SCDs. Heparin held due to hematuria/FOBT + stool. Dispo - for discharge to [facility].
[2019-06-09 14:26] VITALS: BP 103/65; PULSE 96; TEMP 98.2
[2019-06-09 16:22] LABS: PLATELET ESTIMATE ADEQUATE; SMUDGE CELLS FEW
== END 2019-06-09 15:53 | DRG 812 ==
LOC: JER 00:40 → JERBED 04:54 → J8W 06-05 03:17
PROVIDERS: ADMIT Internal Medicine
PROC: 30233N1 Transfusion of Nonautologous Red Blood Cells into Peripheral Vein, Percutaneous Approach (ICD-10-PCS; principal; 2019-06-06)
DX: D64.9 Anemia, unspecified (principal); N13.6 Pyonephrosis; K92.2 Gastrointestinal hemorrhage, unspecified; J98.11 Atelectasis; J90 Pleural effusion, not elsewhere classified; K92.1 Melena; N17.9 Acute kidney failure, unspecified; N18.4 Chronic kidney disease, stage 4 (severe); E78.5 Hyperlipidemia, unspecified; K21.9 Gastro-esophageal reflux disease without esophagitis; H35.30 Unspecified macular degeneration; B96.4 Proteus (mirabilis) (morganii) as the cause of diseases classified elsewhere; K64.8 Other hemorrhoids; I71.9 Aortic aneurysm of unspecified site, without rupture; I12.9 Hypertensive chronic kidney disease with stage 1 through stage 4 chronic kidney disease, or unspecified chronic kidney disease; E88.09 Other disorders of plasma-protein metabolism, not elsewhere classified; N28.1 Cyst of kidney, acquired; K44.9 Diaphragmatic hernia without obstruction or gangrene
CPT/HCPCS: 36415; 36430; 36511; 71045-TC-FY; 74176-TC; 74240-TC-FY; 76775-TC; 80048; 80053; 81003; 82272; 82728; 83540; 83550; 84466; 85025; 85027; 86850; 86900; 86901; 86922; 87086; 87186; 93005; 93010; 99285-25; J7030; P9038; P9058

== ENCOUNTER 2019-07-28 09:04 | Emergency (ER) | payer OTHER ==
[2019-07-28 09:22] VITALS: BMI 28.0
[2019-07-28] MEDS ORDERED: ACETAMINOPHEN 325 MG TABLET (FP) PO ONE (09:45)
[2019-07-28] MEDS ORDERED: SODIUM CHLORIDE 0.9% 500 ML INFUS.BAG IV ONE (09:45)
[2019-07-28] MEDS ORDERED: ONDANSETRON 4 MG/2 ML VIAL IVPUSH ONE (09:45)
--- NOTE | 2019-07-28 09:45 | PDOC ---
History of Present Illness - General Chief Complaint: Headache Stated Complaint: HEADACHE Time Seen by Provider: 07/28/19 09:26 History Source: Patient, EMS Exam Limitations: No Limitations - History of Present Illness Initial Comments: 07/28/19 09:40 HPI 89 year old female with history of AAA s/p recent open repair, hiatal hernia, HTN, HLD, anemia, GERD, Hemorrhoids, Hx UTIs, CKD, presented to ED from [facility] with headache x 2 days. pt describes a generalized headache, unable to describe quality, 5/10, x 2 days, which she states she gets if she is hungry. she hasn't eaten since yesterday 5pm. no meds taken this morning. Feels nauseous and "hungry" currently, +constipated.. per family members (denominational sisters), pt does endorse chronic headaches x "long time" and has periods Denies fever, chills, chest pain, SOB, palpitation, dizziness, vertigo, weakness , vomiting diarrhea, abdominal pain, bladder and bowel problems, hematuria, urgency/frequency/dysuria, focal weakness/paresthesias, leg swelling/pain, rash. No new changes in medications. Recent AAA and large hiatal repair in May 2019 at [facility], also admitted here for anemia, GIB? Dr. Irby (Vascular Surgery at [facility]) Allergies: None Past Medical History/PSH: as above Social history: Lives with family. No tobacco, ETOH or drug use. Meds: as documented in EMR Code status: confirmed, DNR/DNI, signed from 05/2019 Review of systems Constitutional: no fevers or chills. No weakness HEENT: +headache. no dizziness. No congestion. No visual/hearing disturbances. CVS: no cp or syncope. Resp: no sob. No cough. Gastrointestinal: no abdominal pain, vomiting, diarrhea. +nausesa, + constipation. Genitourinary: no urinary sx, hematuria. MUSCULOSKELETAL: No joint pain and swelling. No neck or back pain. SKIN: no redness or skin changes, no discharge, no rash. No wounds. Hematologic: no easy bruising/bleeding. NEUROLOGIC: +headache. No dizziness, LOC or altered mental status. No weakness , numbness or tingling. Psych: no anxiety or depression Allergic/Immunologic: no allergies All other systems reviewed and negative, or as documented in HPI. Physical exam General: Well appearing, awake and alert, NAD. HEENT: NCAT, PERRL, EOMI, clear conjunctiva, anicteric, moist mucus membranes, clear oropharynx, no oral lesions.. Neck: neck supple, FROM Resp: CTAB, normal and even respirations, no respiratory distress CVS: RRR, no murmurs, 2+ peripheral pulses throughout, no peripheral edema Abdomen: soft, NTND, no rebound or guarding. anterior midline vertical scar. no CVAT. Back: nontender, normal inspection and ROM MSK: no edema, JUNIOR x4, ROM intact. No clubbing or cyanosis. normal bulk and tone. Extremities: no calf tenderness Neuro: alert, oriented appropriately to person time and place; CN II-XII grossly intact, no focal neurologic deficits, 5/5 proximal and distal strength against resistance, no drift. SILT in all extrem. speech clear. Psych: Calm and cooperative Skin: warm and well perfused, cap refill <2 sec, normal color, no rash or skin discoloration. 07/28/19 09:55 07/28/19 09:58 07/28/19 10:08 07/28/19 15:47 Past History - Past Medical History Allergies/Adverse Reactions: Allergies Allergy/AdvReac Type Severity Reaction Status Date / Time No Known Allergies Allergy Verified 07/28/19 09:43 Home Medications: Ambulatory Orders Acetaminophen [Tylenol .Extra-Strength -] 1,000 mg PO BID 06/04/19 Calcium Carbonate/Vitamin D3 [Calcium 500 mg Chewable Tablet] 1 each PO DAILY Cholecalciferol (Vitamin D3) [Vitamin D3 -] 1,000 unit PO DAILY 06/04/19 Docusate Sodium [Colace] 200 mg PO BID 06/04/19 Ferrous Sulfate 325 mg PO DAILY 06/04/19 Metoprolol Succinate 50 mg PO DAILY 06/04/19 Omeprazole Magnesium [Prilosec Otc] 40 mg PO DAILY 06/04/19 Aspirin 81 mg PO DAILY 07/28/19 Fludrocortisone Acetate [Florinef -] 0.1 mg PO DAILY 07/28/19 Vit A/Vit C/Vit E/Zinc/Copper [Preservision Tablet] 1 each PO BID 07/28/19 COPD: No GI Disorders: Yes (hemorhoids, reflux) HTN: Yes Hypercholesterolemia: Yes - Surgical History Abdominal Surgery: Yes (Descending thoracic AAA, 04/2019) - Reproductive History Cervical CA: No Dysfunctional Uterine Bleeding: No Ectopic : No Endometrial CA: No Polycystic Ovaries: No Therapeutic (s) & number: No Tubal Ligation: No - Immunization History Immunization Up to Date: Yes - Psycho Social/Smoking Cessation Hx Smoking History: Never smoked Have you smoked in the past 12 months: No Hx Alcohol Use: No Drug/Substance Use Hx: No Hx Substance Use Treatment: No *Physical Exam - Vital Signs Last Vital Signs Temp Pulse Resp BP Pulse Ox 97.7 F 91 H 20 178/100 H 98 07/28/19 09:05 07/28/19 09:05 07/28/19 09:05 07/28/19 09:05 07/28/19 09:05 Heart Score/ECG Review #1 ECG reviewed & interpreted by me at: 09:25 General ECG Interpretation: Sinus Rhythm, Normal Rate, Normal Intervals Compared to previous ECG there are: No significant change 07/28/19 10:01 EKG normal sinus rhythm at 80 bpm, RBBB, wide QRS, ST and T wave segments and morphology normal. Nonspecific T wave abnormalities in III (TWI), unchanged from prior. 07/28/19 10:05 ED Treatment Course - LABORATORY CBC & Chemistry Diagram: 07/28/19 10:00 07/28/19 15:17 - RADIOLOGY Radiology Studies Ordered: Category Date Time Status HEAD CT WITHOUT CONTRAST [CT] Stat CT Scan 07/28/19 09:38 Ordered Medical Decision Making - Medical Decision Making 07/28/19 09:45 Vital Signs Temp Pulse Resp BP Pulse Ox 97.7 F 91 H 20 178/100 H 98 07/28/19 09:05 07/28/19 09:05 07/28/19 09:05 07/28/19 09:05 07/28/19 09:05 VS reviewed, +hypertensive, 178/100 - did not take AM metoprolol DDX headache: migraine, tension, cluster headache, SAH, CVA, head bleed/ICH. Mental status was normal, no neurological deficits were noted. Differential Diagnosis considered includes hypertensive emergency, subarachnoid hemorrhage, meningitis, trauma, CVA, migraine. MDM: Based on the patient's history and physical there is very low clinical suspicion for significant intracranial pathology. The headache was NOT sudden onset, NOT maximal at onset, there are NO neurologic findings, the patient does NOT have a fever, the patient does NOT have any jaw claudication, the patient does NOT endorse a clotting disorder, patient DENIES any trauma or eye pain and the headache is NOT associated with dizziness or ataxia. Will treatment the patient symptomatically and reassess. - Kernig and Brudzinski signs are negative, no petechiae, no photophobia, no dysarthria, no facial asymmetry, and no focal deficits. Very low clinical suspicion for meningitis.No evidence of subarachnoid hemorrhage, intracranial bleed, meningitis, encephalitis, temporal arteritis, or intracranial mass. Patient denies new weakness on one side of the body, diplopia, vertigo, slurred speech, headache, or difficulty walking. - labs and lytes - hypokalemia noted 2.8 likely from not eating, will replete x 3 bags and PO dose, repeat wnl. cr at baseline ckd, baseline anemia,no acute changes and pt not endorsing bloody stools Chronic left parietal occipital cortical infarct, no CT evidence of acute intracranial pathology, bleed or mass. pt tolerated oral intake/food, nausea and headache improved. initially declined tylenol for analgesia. repeat BP without symptoms appropriate, autoregulated, no sig acute end organ damage on labs HCP Sister Geovany informed of results as above, agreeable and questions answered. Pt to be discharged in stable condition back to [facility]. Patient and family made aware of clinical impression, treatment recommendations and disposition plan, return precautions discussed (including but not limited to new or persistent/ worsening symptoms, pain, fevers, or signs of infection, chest pain, respiratory distress, inability to tolerate oral intake, dehydration, syncope, or neurologic changes). Follow up with PMD and/or specialist as recommended, follow up information provided, take medications as instructed for duration of time. continue with supportive care, avoid triggers and precipitants. All questions answered to patient's satisfaction and expressed understanding and comfort with this. At the time of discharge, the patient is alert, clinically improved, tolerating po and verbalizes understanding of instructions, satisfied with the care received and felt comfortable with the plan. Patient does not suffer from an acute life-threatening medical condition at this time and is safe for outpatient follow-up. 07/28/19 12:54 07/28/19 15:48 Discharge - Discharge Information Problems reviewed: Yes Clinical Impression/Diagnosis: Hypokalemia, Headache Condition: Stable Disposition: INTERMEDIATE FACILITY - Admission No - Follow up/Referral Referrals: [facility] [place] [Provider Group] [facility] [Provider Group] - Patient Discharge Instructions Patient Printed Discharge Instructions: DI for Hypokalemia, DI for Headache Additional Instructions: 1) Please follow-up with your primary care doctor in the next 1-2 days. Please call tomorrow for for any urgent issues. 2) You were given a copy of the tests performed today. Please bring the results with you and review them with your primary care doctor. Your laboratory / imaging results were normal, including CT head with old stroke, no acute findings potassium is low and repleted here. 3) If you have any worsening of symptoms or any other concerns please return to the ED immediately. Return if worsening symptoms including fevers, headache, vomiting, visual or hearing disturbances, abdominal pain, chest pain, shortness of breath, syncope, dehydration, inability to take things by mouth/vomiting, altered mental status, or worsening concerning symptoms. 4) Please continue taking your home medications as directed. including your blood pressure medication. Stay well hydrated and rest adequately. Make an appointment. If you cannot follow-up with your primary care doctor please return to the ED - Post Discharge Activity
[2019-07-28] MEDS ORDERED: METOPROLOL TARTRATE 50 MG TABLET (FP) PO ONE (09:46)
[2019-07-28] MEDS ORDERED: METOPROLOL TARTRATE 50 MG TABLET (FP) ONE (09:52)
[2019-07-28] MEDS ORDERED: ONDANSETRON 4 MG/2 ML VIAL ONE (09:52)
[2019-07-28] MEDS ORDERED: ACETAMINOPHEN 325 MG TABLET (FP) ONE (09:52)
[2019-07-28 10:22] LABS: BASO % 1.5 % (0-2.0); EOS % 3.9 % (0-4.5); HEMATOCRIT 27.9 % (32.4-45.2); HEMOGLOBIN 9.5 GM/dL (10.7-15.3); LYMPH % 21.8 % (8-40); MCH 32.5 pg (25.7-33.7); MEAN CELL VOLUME 95.5 fl (80-96); MEAN PLT VOLUME 7.6 fl (7.5-11.1); MONO % 11.5 % (3.8-10.2); NEUT % 61.3 % (42.8-82.8); PLATELET COUNT 131 K/MM3 (134-434); RBC 2.93 M/mm3 (3.60-5.2); RDW 17.3 % (11.6-15.6); WHITE BLOOD COUNT 4.8 K/mm3 (4.0-10.0)
[2019-07-28 10:35] LABS: ALBUMIN 2.9 g/dl (3.4-5.0); BILIRUBIN,TOTAL 0.4 mg/dL (0.2-1); BLOOD UREA NITROGEN 23.6 mg/dL (7-18); CALCIUM 8.4 mg/dL (8.5-10.1); CREATININE 1.6 mg/dL (0.55-1.3); TOT PROT 6.3 g/dl (6.4-8.2)
[2019-07-28 10:38] LABS: POTASSIUM 2.8 mmol/L (3.5-5.1)
[2019-07-28] MEDS ORDERED: POTASSIUM CHLORIDE TABS 20 MEQ TABLET.ER (FP) PO ONE ×2 (10:56→11:10)
[2019-07-28 11:00] LABS: PLATELET ESTIMATE SLT DECREASE
[2019-07-28] MEDS ORDERED: KCL 10 MEQ IVPB 10 MEQ/100 ML INFUS.BAG IVPB ONE ×3 (11:10→13:20)
[2019-07-28] MEDS: KCL 10 MEQ IVPB 10 MEQ/100 ML INFUS.BAG IVPB SCH ×3 (11:13→13:22)
[2019-07-28 17:30] VITALS: BP 179/78; PULSE 77; TEMP 98.2
--- NOTE | 2019-07-29 20:09 | EKG ---
Test Reason : Blood Pressure : / mmHG Vent. Rate : 080 BPM Atrial Rate : 080 BPM P-R Int : 150 ms QRS Dur : 128 ms QT Int : 426 ms P-R-T Axes : 037 062 015 degrees QTc Int : 491 ms NORMAL SINUS RHYTHM RIGHT BUNDLE BRANCH BLOCK ABNORMAL ECG WHEN COMPARED WITH ECG OF 04-JUN-2019 08:18, NO SIGNIFICANT CHANGE WAS FOUND Confirmed by SAGAR YANEZ MD ([id number]) on 07/29/2019 8:09:23 PM Referred By: Confirmed By:SAGAR YANEZ MD
== END 2019-07-28 18:15 ==
LOC: JER 09:04
PROC: 3E0337Z Introduction of Electrolytic and Water Balance Substance into Peripheral Vein, Percutaneous Approach (ICD-10-PCS; principal; 2019-07-28)
DX: E87.6 Hypokalemia (principal); R51 Headache; I12.9 Hypertensive chronic kidney disease with stage 1 through stage 4 chronic kidney disease, or unspecified chronic kidney disease; N18.9 Chronic kidney disease, unspecified; E78.5 Hyperlipidemia, unspecified; K21.9 Gastro-esophageal reflux disease without esophagitis; D64.9 Anemia, unspecified; K44.9 Diaphragmatic hernia without obstruction or gangrene; Z87.440 Personal history of urinary (tract) infections; Z86.79 Personal history of other diseases of the circulatory system
CPT/HCPCS: 36415; 70450-TC; 80053; 84132; 84484; 85025; 93005; 93010; 96365; 96366; 99284-25